=== PATIENT | female | born 1960 | race Caucasian/White ===

== ENCOUNTER 2016-06-05 06:40 | Inpatient (IN) | payer BC ==
[2016-06-03 16:08] LABS: Basophils # (auto) 0 uL; DEFINITIVE VIEW TRANSMISSION; Eosinophils # (auto) 0.1 uL; Hematocrit 39.3 % (36.0-46.0); Lymphocytes # (auto) 1.2 uL; Mean Corpuscular Volume 82.3 fL (80.0-100.0); Mean Platelet Volume 8.8 fL (7.4-10.4)
[2016-06-03 16:14] LABS: Urine Bilirubin Negative (Negative); Urine Blood Negative /uL (Negative); Urine Color Yellow (Yellow); Urine Ketone Negative (Negative); Urine Mucus FEW (None Seen); Urine Nitrite Negative (Negative); Urine RBC 1 /hpf (0 - 4); Urine Squamous Epithelial Cell FEW /hpf (<5); Urine Urobilinogen Normal (Negative); Urine pH 5.5 (5.0-8.0)
[2016-06-03 16:19] LABS: Basophils % (auto) 0.4 % (0.0-2.0); Eosinophils % (auto) 2.3 % (0.0-7.0); Hemoglobin 12.8 g/dL (12.2-16.2); Lymphocytes % (auto) 19.5 % (10.0-50.0); Mean Corpuscular Hemoglobin 26.8 pg (28.0-32.0); Mean Corpuscular Hgb Conc. 32.5 g/dL (32.0-36.0); Monocytes # (auto) 0.4 uL; Monocytes % (auto) 6.2 % (0.0-12.0); Neutrophils # (auto) 4.4 uL; Neutrophils % (auto) 71.6 % (37.0-80.0); Platelet Count (auto) 375 10^3/uL (140-450); Red Cell Distribution Width 13.9 % (11.6-16.0); White Blood Cell 6.2 10^3/uL (4.4-10.8)
[2016-06-03 16:23] LABS: INR 1.01 (0.9-1.15); Partial Thromboplastin Time 26.8 sec (22.64-33.71); Prothrombin Time 10.4 sec (9.37-12.3)
[2016-06-03 16:26] LABS: Albumin 3.7 g/dL (3.4-5.0); BUN/Creatinine Ratio 24.4; Bilirubin, Total 0.3 mg/dL (0.2-1.0); Calcium 9.2 mg/dL (8.5-10.1); Potassium 3.8 mmol/L (3.5-5.1); Total Protein 7.4 g/dL (6.4-8.2)
[2016-06-03 16:35] LABS: Urine Glucose 1+ mg/dL (Normal)
[~2016-06-05] VITALS: Ht 177.8 cm; Wt 130.6 kg
[~2016-06-05 06:40] MED LIST: HYDR12.56 PO; INSUINJ47; LEVEMIR SC; LEVO88TA36 PO; POT10T PO
[2016-06-05] MEDS ORDERED: BUPIVACAINE 0.25% INJ 50ML VIAL ONE (06:46)
[2016-06-05] MEDS ORDERED: LIDOCAINE 1% HCL (LOCAL ANESTH.) INJ 20ML MDV ONE (06:46)
[2016-06-05] MEDS ORDERED: ceFAZolin 1GM/50ML D5W 50 ML IV ONE (07:26)
[2016-06-05] MEDS ORDERED: SUCCINYLCHOLINE CHLORIDE 20 MG/ML 10ML VIAL IV ONE (07:30)
[2016-06-05] MEDS ORDERED: fentaNYL CITRATE 5 ML ONE (07:31)
[2016-06-05] MEDS ORDERED: ROCURONIUM 10MG/ML 10ML VIAL IV ONE (07:31)
[2016-06-05] MEDS ORDERED: MIDAZOLAM HCL 1MG/1ML-2 ML VIAL ONE (07:32)
[2016-06-05] MEDS ORDERED: PROPOFOL 10 MG/ML 20 ML IV ONE (07:32)
[2016-06-05] MEDS ORDERED: GLYCOPYRROLATE 0.2 MG/ML 1ML VIAL IV ONE (07:33)
[2016-06-05] MEDS ORDERED: NEOSTIGMINE 1 MG/ML INJ (10mg/10ML VIAL) IV ONE (07:33)
[2016-06-05] MEDS ORDERED: NEOMYCIN-BACITRACIN-POLYM 15GM TOP OINT TOP ONE (08:54)
[2016-06-05] MEDS ORDERED: fentaNYL CITRATE 100 MCG/2 ML VL ONE (09:14)
[2016-06-05] MEDS ORDERED: NITROGLYCERIN 0.4 MG SL TAB SL PRN (09:15)
[2016-06-05] MEDS ORDERED: HYDROcodone-ACET 5/325MG TAB PO PRN (09:15)
[2016-06-05] MEDS ORDERED: ONDANSETRON HCL 4 MG/2 ML VIAL IV ONE (09:30)
[2016-06-05] MEDS ORDERED: ePHEDrine SULFATE 50 MG/ML AMP IV PRN (09:30)
[2016-06-05] MEDS ORDERED: hydrALAZINE HCL 20 MG/ML VL IV PRN (09:30)
[2016-06-05] MEDS: HYDROmorphone HCL 2 MG/ML VL IV PRN ×5 (09:38→19:43)
[2016-06-05 10:34] VITALS: BP 144/68
[2016-06-05] MEDS: MEPERIDINE HCL (25 MG/ML) 1ML VIAL IV PRN ×2 (11:18→16:05)
[2016-06-05] MEDS: SOD CHL 0.45% 1,000 ML IV SCH ×2 (11:30→17:15)
[2016-06-05 13:00] VITALS: BP 135/68
[2016-06-05 13:13] VITALS: BP 144/68
[2016-06-05] MEDS: ceFAZolin 1GM/50ML D5W 50 ML IV SCH ×2 (13:47→22:00)
[2016-06-05] MEDS ORDERED: DEXTROSE (50%) 50ML SYRG IV PRN (15:00)
[2016-06-05] MEDS: InsuLIN REG 1unit/0.01ml Soln (100units/ml) SC SCH ×2 (15:37→22:00)
[2016-06-05] MEDS: ACCU-CHEK COMFORT CURVE STRIP VI SCH ×2 (15:40→22:00)
[2016-06-05 17:00] VITALS: BP 137/76
[2016-06-05] MEDS: INSULIN DETEMIR(LEVEMIR) 1unit/0.01ml Soln (100units/ml) SC SCH (18:07)
[2016-06-05] MEDS: ONDANSETRON HCL 4 MG/2 ML VIAL IV PRN (19:46)
[2016-06-05 21:52] VITALS: BP 120/72
[2016-06-05] MEDS: MORPHINE SULF INJ 2 MG/ML SYRINGE 1ML IV PRN (23:55)
[2016-06-06] MEDS: SOD CHL 0.45% 1,000 ML IV SCH ×2 (01:30→09:36)
[2016-06-06 05:02] VITALS: BP 139/65
[2016-06-06] MEDS: ceFAZolin 1GM/50ML D5W 50 ML IV SCH (06:13)
[2016-06-06] MEDS: MORPHINE SULF INJ 2 MG/ML SYRINGE 1ML IV PRN (06:17)
[2016-06-06] MEDS: InsuLIN REG 1unit/0.01ml Soln (100units/ml) SC SCH (07:00)
[2016-06-06] MEDS: ACCU-CHEK COMFORT CURVE STRIP VI SCH (07:00)
[2016-06-06] MEDS: INSULIN DETEMIR(LEVEMIR) 1unit/0.01ml Soln (100units/ml) SC SCH (08:16)
[2016-06-06] MEDS: MEPERIDINE HCL (25 MG/ML) 1ML VIAL IV PRN (10:13)
[2016-06-06 12:00] VITALS: BP 122/52
[2016-06-06] MEDS: ONDANSETRON HCL 4 MG/2 ML VIAL IV PRN (13:11)
[2016-06-06 14:27] VITALS: BP 122/52
== END 2016-06-06 15:30 | disposition home or self-care (01) | DRG 627 ==
LOC: SUR 06:40 → TELE-EAST 06:41 → EAST 20:45
PROVIDERS: ADMIT Otolaryngology; ATTEND Internal Medicine
PROC: 0GTG0ZZ Resection of Left Thyroid Gland Lobe, Open Approach (ICD-10-PCS; principal; 2016-06-05 07:33)
DX: D34 Benign neoplasm of thyroid gland (principal); E03.9 Hypothyroidism, unspecified; E66.01 Morbid (severe) obesity due to excess calories; E04.9 Nontoxic goiter, unspecified; E07.9 Disorder of thyroid, unspecified; E10.9 Type 1 diabetes mellitus without complications
CPT/HCPCS: 36415; 80053; 81001; 82962; 85025; 85610; 85730; 88307; J0330; J0690; J1815; J2001; J2250; J2405; J2704; J3490

== ENCOUNTER 2016-06-20 18:43 | Emergency (ER) | payer BC ==
[~2016-06-20] VITALS: Ht 177.8 cm; Wt 107.0 kg
[2016-06-20 18:46] VITALS: BP 142/68
[2016-06-20 19:23] LABS: Basophils # (auto) 0 uL; DEFINITIVE VIEW TRANSMISSION; Eosinophils # (auto) 0.1 uL; Mean Platelet Volume 8.5 fL (7.4-10.4); Monocytes # (auto) 0.5 uL; Red Cell Distribution Width 12.8 % (11.6-16.0); SUSPECT VIEW TRANSMISSION
[2016-06-20 19:30] LABS: Basophils % (auto) 0.2 % (0.0-2.0); Eosinophils % (auto) 0.9 % (0.0-7.0); Hemoglobin 12.9 g/dL (12.2-16.2); Lymphocytes # (auto) 0.8 uL; Lymphocytes % (auto) 7.9 % (10.0-50.0); Mean Corpuscular Hemoglobin 27.3 pg (28.0-32.0); Mean Corpuscular Hgb Conc. 33.2 g/dL (32.0-36.0); Mean Corpuscular Volume 82.2 fL (80.0-100.0); Monocytes % (auto) 4.6 % (0.0-12.0); Neutrophils # (auto) 8.9 uL; Neutrophils % (auto) 86.4 % (37.0-80.0); Platelet Count (auto) 325 10^3/uL (140-450); White Blood Cell 10.3 10^3/uL (4.4-10.8)
[2016-06-20 19:31] LABS: Albumin 3.8 g/dL (3.4-5.0); BUN/Creatinine Ratio 20.2; Bilirubin, Total 0.2 mg/dL (0.2-1.0); Calcium 9.2 mg/dL (8.5-10.1); Total Protein 7.8 g/dL (6.4-8.2)
== END 2016-06-20 21:16 | disposition left against medical advice (07) ==
LOC: ER 18:48
DX: E16.2 Hypoglycemia, unspecified (principal); Z53.21 Procedure and treatment not carried out due to patient leaving prior to being seen by health care provider
CPT/HCPCS: 36415; 80053; 85025

== ENCOUNTER → 2016-06-24 | Outpatient (CLI) | payer BC ==
[2016-06-24 17:35] LABS: Albumin 3.8 g/dL (3.4-5.0); BUN/Creatinine Ratio 26.1; Bilirubin, Total 0.2 mg/dL (0.2-1.0); Potassium 3.6 mmol/L (3.5-5.1); Total Protein 7.8 g/dL (6.4-8.2)
[2016-06-24 18:28] LABS: Basophils # (auto) 0.1 uL; Basophils % (auto) 0.8 % (0.0-2.0); DEFINITIVE VIEW TRANSMISSION; Eosinophils # (auto) 0.2 uL; Eosinophils % (auto) 2.3 % (0.0-7.0); Hemoglobin 12.6 g/dL (12.2-16.2); Lymphocytes # (auto) 1.4 uL; Lymphocytes % (auto) 20.9 % (10.0-50.0); Mean Corpuscular Hemoglobin 26.1 pg (28.0-32.0); Mean Corpuscular Hgb Conc. 31.5 g/dL (32.0-36.0); Mean Corpuscular Volume 82.7 fL (80.0-100.0); Mean Platelet Volume 8.8 fL (7.4-10.4); Monocytes # (auto) 0.4 uL; Monocytes % (auto) 6.5 % (0.0-12.0); Neutrophils # (auto) 4.6 uL; Neutrophils % (auto) 69.5 % (37.0-80.0); Platelet Count (auto) 353 10^3/uL (140-450); Red Cell Distribution Width 13.7 % (11.6-16.0); White Blood Cell 6.7 10^3/uL (4.4-10.8)
[2016-06-24 19:57] LABS: Hypochromia Slight; Platelet Estimate Adequate
== END | disposition home or self-care (01) ==
LOC: LAB 16:25
PROVIDERS: ATTEND Internal Medicine
DX: E03.9 Hypothyroidism, unspecified (principal); E10.9 Type 1 diabetes mellitus without complications
CPT/HCPCS: 36415; 80053; 82607; 83001; 83036; 84439; 84443; 85025

== ENCOUNTER → 2017-02-25 | Outpatient (CLI) | payer BC ==
[2017-02-25 10:14] LABS: Basophils # (auto) 0.1 uL; Eosinophils # (auto) 0.3 uL; Lymphocytes # (auto) 1.7 uL; Monocytes # (auto) 0.8 uL; Red Cell Distribution Width 15.9 % (11.8-14.3)
[2017-02-25 10:22] LABS: Albumin 3.6 g/dL (3.4-5.0); Bilirubin, Total 0.4 mg/dL (0.2-1.0); Calcium 8.8 mg/dL (8.5-10.1); Potassium 3.2 mmol/L (3.5-5.1); Total Protein 7.5 g/dL (6.4-8.2)
[2017-02-25 10:23] LABS: Basophils % (auto) 0.6 % (0.0-2.0); Eosinophils % (auto) 3.3 % (0.0-7.0); Hematocrit 40.5 % (36.0-46.0); Hemoglobin 13.4 g/dL (12.2-16.2); Lymphocytes % (auto) 19.1 % (10.0-50.0); Mean Corpuscular Hemoglobin 26.7 pg (28.0-32.0); Mean Corpuscular Hgb Conc. 33.1 g/dL (32.0-36.0); Mean Corpuscular Volume 80.5 fL (80.0-100.0); Mean Platelet Volume 8.1 fL (6.9-10.8); Monocytes % (auto) 8.6 % (0.0-12.0); Neutrophils % (auto) 68.4 % (37.0-80.0); Platelet Count (auto) 365 10^3/uL (140-450); White Blood Cell 8.8 10^3/uL (4.4-10.8)
[2017-02-25 10:49] LABS: Urine Bilirubin Negative (Negative); Urine Blood Negative /uL (Negative); Urine Color Yellow (Yellow); Urine Glucose TRACE mg/dL (Normal); Urine Ketone Negative (Negative); Urine Mucus FEW (None Seen); Urine Nitrite Negative (Negative); Urine RBC 1 /hpf (0 - 4); Urine Squamous Epithelial Cell FEW /hpf (<5); Urine Urobilinogen Normal (Negative); Urine pH 5.5 (5.0-8.0)
== END | disposition home or self-care (01) ==
LOC: LAB 09:24
PROVIDERS: ATTEND Internal Medicine
DX: E11.9 Type 2 diabetes mellitus without complications (principal)
CPT/HCPCS: 36415; 80053; 80061; 81001; 82043; 83036; 84439; 84443; 85025; 85652

== ENCOUNTER → 2017-03-25 | Outpatient (CLI) | payer BC | END | disposition home or self-care (01) | LOC: LAB 09:25 | PROVIDERS: ATTEND Internal Medicine | DX: E11.9 Type 2 diabetes mellitus without complications (principal); E03.9 Hypothyroidism, unspecified | CPT/HCPCS: 36415; 82085; 84132; 84439; 84443 ==

== ENCOUNTER → 2019-06-03 | Outpatient (CLI) | payer BC ==
[2019-06-03 08:03] LABS: Eosinophils # (auto) 0.1 uL; Hemoglobin 11.8 g/dL (12.2-16.2); Lymphocytes # (auto) 0.9 uL; Lymphocytes % (auto) 20.8 % (10.0-50.0); Monocytes # (auto) 0.4 uL; Monocytes % (auto) 7.9 % (0.0-12.0)
[2019-06-03 08:05] LABS: Basophils # (auto) 0.1 uL; Basophils % (auto) 1.2 % (0.0-2.0); Eosinophils % (auto) 2.4 % (0.0-7.0); Hematocrit 35.7 % (36.0-46.0); Mean Corpuscular Hemoglobin 25.9 pg (28.0-32.0); Mean Corpuscular Volume 78.5 fL (80.0-100.0); Neutrophils % (auto) 67.7 % (37.0-80.0); Nucleated Red Blood Cells % 0.1 %; Platelet Count (auto) 309 10^3/uL (140-450); Red Blood Cells 4.55 10^6/uL (4.0-5.20); Red Cell Distribution Width 14.8 % (11.8-14.3); White Blood Cell 4.4 10^3/uL (4.4-10.8)
[2019-06-03 09:13] LABS: Albumin 3.3 g/dL (3.4-5.0); BUN/Creatinine Ratio 16.5; Calcium 8.6 mg/dL (8.5-10.1); Potassium 3.8 mmol/L (3.5-5.1)
[2019-06-03 09:16] LABS: Bilirubin, Total 0.5 mg/dL (0.2-1.0); Total Protein 7.1 g/dL (6.4-8.2)
[2019-06-03 09:21] LABS: Free T4 (Free Thyroxine) 1.39 ng/dL (0.89-1.76)
[2019-06-03 09:22] LABS: Free T3 2.8 pg/mL (2.3-4.2)
== END | disposition home or self-care (01) ==
LOC: LAB 07:05
PROVIDERS: ATTEND Internal Medicine
DX: Z00.00 Encounter for general adult medical examination without abnormal findings (principal); E10.618 Type 1 diabetes mellitus with other diabetic arthropathy; E78.5 Hyperlipidemia, unspecified; Z12.11 Encounter for screening for malignant neoplasm of colon
CPT/HCPCS: 36415; 80053; 80061; 82043; 82306; 83036; 84439; 84443; 84481; 85025

== ENCOUNTER → 2019-06-14 | Outpatient (CLI) | payer BC | END | disposition home or self-care (01) | LOC: LAB 07:11 | PROVIDERS: ATTEND Internal Medicine | DX: Z12.11 Encounter for screening for malignant neoplasm of colon (principal); E10.69 Type 1 diabetes mellitus with other specified complication; E78.5 Hyperlipidemia, unspecified | CPT/HCPCS: 82274 ==

== ENCOUNTER 2019-06-28 09:43 | Inpatient (IN) | payer BC ==
[~2019-06-28] VITALS: Ht 175.3 cm; Wt 127.6 kg
[2019-06-28 10:23] LABS: Basophils # (auto) 0.1 uL; Basophils % (auto) 1.1 % (0.0-2.0); Eosinophils # (auto) 0.1 uL; Eosinophils % (auto) 1.6 % (0.0-7.0); Hematocrit 37.9 % (36.0-46.0); Hemoglobin 12.4 g/dL (12.2-16.2); Lymphocytes % (auto) 17.3 % (10.0-50.0); Mean Corpuscular Hemoglobin 25.4 pg (28.0-32.0); Mean Corpuscular Hgb Conc. 32.7 g/dL (32.0-36.0); Mean Corpuscular Volume 77.8 fL (80.0-100.0); Monocytes # (auto) 0.3 uL; Monocytes % (auto) 5.6 % (0.0-12.0); Neutrophils # (auto) 4.5 uL; Neutrophils % (auto) 74.4 % (37.0-80.0); Platelet Count (auto) 337 10^3/uL (140-450); Red Blood Cells 4.88 10^6/uL (4.0-5.20); Red Cell Distribution Width 15.6 % (11.8-14.3); White Blood Cell 6.1 10^3/uL (4.4-10.8)
[2019-06-28 10:40] LABS: Albumin 3.6 g/dL (3.4-5.0); Potassium 3.9 mmol/L (3.5-5.1)
[2019-06-28 10:43] LABS: BUN/Creatinine Ratio 23.5; Bilirubin, Total 0.4 mg/dL (0.2-1.0); Total Protein 7.6 g/dL (6.4-8.2)
[2019-06-28] MEDS ORDERED: ALBUTEROL SULF 2.5 MG/0.5ML(0.5%) NEB SOLN HHN ONE (11:15)
[2019-06-28] MEDS ORDERED: SODIUM CHLORIDE 0.9% 1,000 ML IV ONE (11:15)
[2019-06-28] MEDS ORDERED: methylPREDNISolone SOD SUCC 125 MG/2 ML VL IV ONE (11:15)
[2019-06-28] MEDS ORDERED: IPRATROPIUM BROM 0.5 MG/2.5ML INH SOL HHN ONE (11:15)
[2019-06-28] MEDS ORDERED: ACETAMINOPHEN 325 MG TAB PO ONE (12:30)
[2019-06-28] MEDS ORDERED: ENALAPRILAT 1.25 MG/ML-1ML VIAL IV PRN (14:45)
[2019-06-28] MEDS ORDERED: ACETAMINOPHEN 500 MG TAB PO PRN (14:45)
[2019-06-28] MEDS ORDERED: DEXTROSE (50%) 50ML SYRG IV PRN (14:45)
[2019-06-28] MEDS ORDERED: MORPHINE SULF INJ 2 MG/ML SYRINGE 1ML IV PRN (14:45)
[2019-06-28] MEDS ORDERED: NITROGLYCERIN 0.4 MG SL TAB SL PRN (14:45)
[2019-06-28 15:27] VITALS: BP 135/69
[2019-06-28] MEDS: SODIUM CHLORIDE 0.9% 1,000 ML IV SCH (15:32)
--- NOTE | 2019-06-28 15:52 | NUR ---
Telemetry admit from ER OSMEL MCLAUGHLIN admitted to Telemetry unit after SBAR received. Patient oriented to Lea Espinal, primary RN, unit, room, bed, and unit policies regarding patient care and visiting hours. Patient now on continuous telemetry monitoring, tele box #[id number] and telemetry reading on arrival to unit is SR. Patient placed on bedside oxygen, weighed by bedscale and encouraged to call if they need something. All questions and concerns addressed, patient verbalized understanding.
[2019-06-28] MEDS: cefTRIAXone 1GM/50ML D5W 50 ML IV SCH (16:00)
[2019-06-28] MEDS: InsuLIN REG 1unit/0.01ml Soln (100units/ml) SC SCH ×2 (16:00→20:00)
[2019-06-28] MEDS: ACCU-CHEK COMFORT CURVE STRIP VI SCH ×2 (16:00→20:00)
[2019-06-28] MEDS: AZITHROMYCIN 500MG/ 250ML 250 ML IV SCH (16:00)
[2019-06-28 17:00] VITALS: BP 143/71
[2019-06-28 17:42] VITALS: BP 143/71
[2019-06-28] MEDS: ALBUTEROL SULF 2.5 MG/0.5ML(0.5%) NEB SOLN NEB SCH (18:55)
[2019-06-28] MEDS: IPRATROPIUM BROM 0.5 MG/2.5ML INH SOL NEB SCH (18:55)
--- NOTE | 2019-06-28 19:27 | NUR ---
care endorsed to NOC RN.
--- NOTE | 2019-06-28 19:30 | NUR ---
Opening Shift Note Assumed care of patient, who is A&O x4. Family is at the bedside at this time. Currently on 2L NC with no s/s of distress. Reports SOB with exertion. Patient is ambulatory without the use of assistive devices. PIV in right forearm is intact and patent. Patient reports tingling/burning sensation at insertion site. Azithromycin currently infusing. Rate decreased and IVF ran concurrently. POC discussed with patient and family who verbalize understanding. Bed is in low locked position with side rails up x2. Call light is within reach and patient encouraged to call for assistance when needed. Will continue to monitor for changes PRN.
--- NOTE | 2019-06-28 19:45 | NUR ---
Patient provided specimen cup and instructed on collection of sputum sample. Called lab and requested swab for Rapid Influenza A&B.
--- NOTE | 2019-06-28 20:12 | NUR ---
HOME MEDICATIONS Patient requesting to use personal Levemire and novolog insulin pens at bedside, rather than hospital insulin. Reports that at home she administers 20 units Novolog for BG greater than 250 and 16 units Levemire at breakfast and dinner. Hospitalist paged to notify of patient's request.
[2019-06-28 20:15] VITALS: BP 135/69
--- NOTE | 2019-06-28 20:38 | NUR ---
IV removal IV to left forearm infiltrated. Surrounding tissues pink amd mildly edemetous. Infusion stopped and IV DC'd with clean sterile technique, catheter fully intact. Pressure dressing applied to site. Patient tolerated well. Addendum: 06/28/19 at 2051 by JAYESH MARTINI RN RN Correction: IV to RIGHT forearm DC'd
--- NOTE | 2019-06-28 20:42 | NUR ---
IV insertion IV access obtained, via clean sterile technique by inserting 22 gauge catheter at left after 1 attempt. IV secured properly. No trauma to site. Patient tolerated well.
[2019-06-28] MEDS ORDERED: SIMV10TA84 PO (20:54)
[2019-06-28] MEDS: INSULIN LANTUS (GLARGINE) 1 /0.01ml (100units/ml) SC SCH (21:36)
[2019-06-28 22:00] VITALS: BP 135/69
--- NOTE | 2019-06-28 22:18 | NUR ---
Received call from Hospitalist Feliciano Davis NP. No new orders at this time. Rounding hospitalist to review Medication reconciliation with patient tomorrow 06/29/19.
[2019-06-29] VITALS (8 sets, daily range): BP systolic 114–140; BP diastolic 46–79
[2019-06-29] MEDS: ACCU-CHEK COMFORT CURVE STRIP VI SCH ×6 (00:29→20:10)
[2019-06-29] MEDS: InsuLIN REG 1unit/0.01ml Soln (100units/ml) SC SCH ×6 (00:32→20:10)
[2019-06-29] MEDS: SODIUM CHLORIDE 0.9% 1,000 ML IV SCH ×3 (00:33→17:35)
[2019-06-29 05:43] LABS: Basophils # (auto) 0 uL; Basophils % (auto) 0.2 % (0.0-2.0); Eosinophils # (auto) 0 uL; Hematocrit 33.3 % (36.0-46.0); Lymphocytes # (auto) 0.8 uL; Lymphocytes % (auto) 10.4 % (10.0-50.0); Mean Corpuscular Hemoglobin 25.4 pg (28.0-32.0); Mean Corpuscular Hgb Conc. 33.2 g/dL (32.0-36.0); Mean Corpuscular Volume 76.6 fL (80.0-100.0); Monocytes # (auto) 0.7 uL; Monocytes % (auto) 8.4 % (0.0-12.0); Neutrophils # (auto) 6.4 uL; Platelet Count (auto) 319 10^3/uL (140-450); Red Blood Cells 4.35 10^6/uL (4.0-5.20); Red Cell Distribution Width 15.6 % (11.8-14.3); White Blood Cell 7.9 10^3/uL (4.4-10.8)
[2019-06-29 06:02] LABS: Calcium 8.8 mg/dL (8.5-10.1); Potassium 3.8 mmol/L (3.5-5.1)
[2019-06-29] MEDS: IPRATROPIUM BROM 0.5 MG/2.5ML INH SOL NEB SCH ×3 (06:25→19:27)
[2019-06-29] MEDS: ALBUTEROL SULF 2.5 MG/0.5ML(0.5%) NEB SOLN NEB SCH ×3 (06:25→19:27)
[2019-06-29] MEDS: INSULIN LANTUS (GLARGINE) 1 /0.01ml (100units/ml) SC SCH ×2 (06:45→21:43)
--- NOTE | 2019-06-29 06:59 | NUR ---
CLOSING SHIFT NOTE Patient resting comfortably. No distress noted. Call light is within reach. Care endorsed to AM nurse.
[2019-06-29] MEDS: AZITHROMYCIN 500MG/ 250ML 250 ML IV SCH ×2 (08:36→09:20)
[2019-06-29] MEDS: cefTRIAXone 1GM/50ML D5W 50 ML IV SCH (08:37)
[2019-06-29] MEDS: FAMOTIDINE 20 MG TAB PO SCH (09:20)
[2019-06-29] MEDS ORDERED: InsuLIN REG 1unit/0.01ml Soln (100units/ml) SC ONE (14:15)
[2019-06-29] MEDS ORDERED: methylPREDNISolone SOD SUCC 40 MG/ML VL IV ONE (15:15)
--- NOTE | 2019-06-29 19:20 | NUR ---
Opening Shift Note Assumed care of patient, who is A&O x4. Family is at the bedside at this time. Currently on 2L NC with no s/s of distress. Reports SOB with exertion. Patient is ambulatory without the use of assistive devices. PIV in left forearm is intact and patent. POC discussed with patient who verbalizes understanding. Bed is in low locked position with side rails up x2. Call light is within reach and patient encouraged to call for assistance when needed. Will continue to monitor for changes PRN.
[2019-06-29] MEDS: methylPREDNISolone SOD SUCC 40 MG/ML VL IV SCH (21:37)
[2019-06-30] VITALS (7 sets, daily range): BP systolic 108–144; BP diastolic 44–63
[2019-06-30] MEDS: ACCU-CHEK COMFORT CURVE STRIP VI SCH ×6 (00:08→20:00)
[2019-06-30] MEDS: InsuLIN REG 1unit/0.01ml Soln (100units/ml) SC SCH ×5 (00:09→20:00)
--- NOTE | 2019-06-30 01:10 | NUR ---
Rapid Influenza Sample collected for rapid influenza A&B. Sent to lab delroy garnica.
[2019-06-30] MEDS: SODIUM CHLORIDE 0.9% 1,000 ML IV SCH ×2 (05:43→15:07)
[2019-06-30 05:46] LABS: Calcium 8.4 mg/dL (8.5-10.1); Magnesium 2.2 mg/dL (1.6-2.6); Potassium 4.4 mmol/L (3.5-5.1)
[2019-06-30 05:50] LABS: BUN/Creatinine Ratio 22.2
[2019-06-30] MEDS: INSULIN LANTUS (GLARGINE) 1 /0.01ml (100units/ml) SC SCH ×2 (07:03→21:59)
[2019-06-30] MEDS: LEVOTHYROXINE SODIUM 88 MCG TAB PO SCH (07:03)
[2019-06-30] MEDS: ALBUTEROL SULF 2.5 MG/0.5ML(0.5%) NEB SOLN NEB SCH ×3 (08:17→18:43)
[2019-06-30] MEDS: IPRATROPIUM BROM 0.5 MG/2.5ML INH SOL NEB SCH ×3 (08:17→18:44)
[2019-06-30] MEDS: cefTRIAXone 1GM/50ML D5W 50 ML IV SCH (08:45)
[2019-06-30] MEDS: methylPREDNISolone SOD SUCC 40 MG/ML VL IV SCH ×2 (09:23→21:54)
[2019-06-30] MEDS: FAMOTIDINE 20 MG TAB PO SCH (09:24)
[2019-06-30] MEDS: AZITHROMYCIN 500MG/ 250ML 250 ML IV SCH (09:24)
[2019-06-30] MEDS: ONDANSETRON HCL 4 MG/2 ML VIAL IV PRN (10:18)
[2019-06-30] MEDS: guaiFENesin-DM 100/10mg/5ml SYR PO PRN (14:00)
[2019-06-30] MEDS: ACETYLCYSTEINE 10 %(100MG/ML) SOL 4ML NEB SCH (18:44)
[2019-06-30] MEDS ORDERED: DEXTROSE (50%) 50ML SYRG IV PRN (19:00)
--- NOTE | 2019-06-30 19:20 | NUR ---
Opening Shift Note Assumed care of patient, awake and alert and oriented x4. No S/S of distress, or pain reported at this time, currently sitting up in chair, on room air, nasal canula at bedside to use PRN, no current c/o sob, IV patent to right wrist, no swelling, redness or pain reported, Instructed on POC and to call for assist PRN, call light within reach, will continue to monitor for changes Q1hr and PRN.
--- NOTE | 2019-06-30 21:30 | NUR ---
ACTIVITY PT NOTED AMBULATING, ON ROOM AIR, NO DISTRESS NOTED, NO C/O SOB AT THIS TIME, CONT CARE
[2019-06-30] MEDS: MORPHINE SULF INJ 2 MG/ML SYRINGE 1ML IV PRN (21:55)
--- NOTE | 2019-07-01 03:16 | NUR ---
PT CARE ENDORSED TO KACIE HICKS
[2019-07-01] MEDS: InsuLIN REG 1unit/0.01ml Soln (100units/ml) SC SCH ×7 (04:00→23:51)
[2019-07-01] MEDS: ACCU-CHEK COMFORT CURVE STRIP VI SCH ×7 (04:15→23:50)
[2019-07-01 05:00] VITALS: BP 105/53
[2019-07-01] MEDS: LEVOTHYROXINE SODIUM 88 MCG TAB PO SCH (07:16)
[2019-07-01] MEDS: INSULIN LANTUS (GLARGINE) 1 /0.01ml (100units/ml) SC SCH ×2 (07:17→22:44)
[2019-07-01 08:00] VITALS: BP 110/78
[2019-07-01] MEDS: IPRATROPIUM BROM 0.5 MG/2.5ML INH SOL NEB SCH ×3 (08:43→19:41)
[2019-07-01] MEDS: ACETYLCYSTEINE 10 %(100MG/ML) SOL 4ML NEB SCH ×3 (08:43→19:42)
[2019-07-01] MEDS: ALBUTEROL SULF 2.5 MG/0.5ML(0.5%) NEB SOLN NEB SCH ×3 (08:43→19:41)
[2019-07-01 09:00] VITALS: BP 110/48
[2019-07-01] MEDS: methylPREDNISolone SOD SUCC 40 MG/ML VL IV SCH ×2 (09:33→22:42)
[2019-07-01] MEDS: cefTRIAXone 1GM/50ML D5W 50 ML IV SCH (09:33)
[2019-07-01] MEDS: FAMOTIDINE 20 MG TAB PO SCH (09:33)
[2019-07-01] MEDS: SODIUM CHLORIDE 0.9% 1,000 ML IV SCH (09:34)
[2019-07-01] MEDS: AZITHROMYCIN 500MG/ 250ML 250 ML IV SCH (10:27)
[2019-07-01] MEDS: guaiFENesin-DM 100/10mg/5ml SYR PO PRN ×2 (10:27→20:08)
[2019-07-01 12:30] VITALS: BP 149/67
--- NOTE | 2019-07-01 14:03 | NUR ---
Nutrition Assessment Notes Please refer to link for full assessment notes Est energy needs: 1727-9782 kcals (12-15 kcals/kgBW) Est protein needs: 65-82 gms/day (0.8-1.0 gm/kgAdjBW) Will continue to monitor and reassess prn Addendum: 07/01/19 at [address] Amended: Links added.
--- NOTE | 2019-07-01 15:52 | NUR ---
assessment Patient is a 58 year old female who is alert and oriented. Patients cognitive abilities are intact. Prior to admission patient lived home with family and functioned independently. Patient informed me she is able to care for her own ADLs. Per patient she will return home to her prior living arrangements post discharge and family will transport her home. Patients PCP is Dr Jessica Adame. Patient has no safety issues regarding returning home on discharge. Patient has been admitted for Sepsis. Patient may need home IV ABX. Per patient she is teachable if she needs ABX. I informed patient she has a right to speak to a older adult social work specialist regarding all care. I informed patient she has a right to participate in any and all discharge planning. Patient does not have a POA and advanced directive. I have offered patient information on POA and advanced directives. I informed the patient the advantages and benefits of having an Advanced Directive. Patient verbalized understanding and agreed to discharge plan. Addendum: 07/01/19 at 1554 by Christine MADERA Amended: Links added.
[2019-07-01 17:00] VITALS: BP 133/57
--- NOTE | 2019-07-01 19:30 | NUR ---
Opening Shift Note Assumed care of patient, awake and alert and oriented x4. No S/S of distress on 2L N/C. Reports pain 7/10, currently sitting up in chair. Instructed on POC and to call for assist PRN, call light within reach, will continue to monitor for changes Q1hr and PRN.
--- NOTE | 2019-07-01 19:45 | NUR ---
Rt at bedside
[2019-07-01] MEDS: MORPHINE SULF INJ 2 MG/ML SYRINGE 1ML IV PRN (20:08)
[2019-07-01] MEDS: ONDANSETRON HCL 4 MG/2 ML VIAL IV PRN (20:08)
[2019-07-01 20:54] VITALS: BP 133/57
[2019-07-01] MEDS: HYDROcodone-ACET 5/325MG TAB PO PRN (22:43)
[2019-07-02] VITALS (8 sets, daily range): BP systolic 108–139; BP diastolic 49–77
--- NOTE | 2019-07-02 03:25 | NUR ---
PT CARE RESUMED PT CURRENTLY SLEEPING, ON HER RIGHT SIDE, CURRENTLY ON 2L VIA NC, BREATHING EVEN AND UNLABORED, HOB>30, PATIENT EASILY AWAKENED VIA VERBAL STIMULI, NO C/O SOB, CP OR ANY OTHER DISCOMFORT, IV PATENT AND BENIGN, PT UPDATED ON POC, CALL LIGHT WITHIN REACH, CONT CARE
[2019-07-02] MEDS: ACCU-CHEK COMFORT CURVE STRIP VI SCH ×5 (04:00→20:00)
[2019-07-02] MEDS: InsuLIN REG 1unit/0.01ml Soln (100units/ml) SC SCH ×5 (04:00→20:00)
[2019-07-02] MEDS: LEVOTHYROXINE SODIUM 88 MCG TAB PO SCH (06:42)
[2019-07-02] MEDS: INSULIN LANTUS (GLARGINE) 1 /0.01ml (100units/ml) SC SCH ×2 (06:43→21:10)
[2019-07-02] MEDS: ALBUTEROL SULF 2.5 MG/0.5ML(0.5%) NEB SOLN NEB SCH ×3 (06:59→18:55)
[2019-07-02] MEDS: IPRATROPIUM BROM 0.5 MG/2.5ML INH SOL NEB SCH ×3 (07:00→18:55)
[2019-07-02] MEDS: ACETYLCYSTEINE 10 %(100MG/ML) SOL 4ML NEB SCH ×3 (07:00→22:00)
[2019-07-02 08:16] LABS: Calcium 8.3 mg/dL (8.5-10.1); Potassium 4.6 mmol/L (3.5-5.1)
[2019-07-02 08:19] LABS: BUN/Creatinine Ratio 27.1
[2019-07-02] MEDS: AZITHROMYCIN 500MG/ 250ML 250 ML IV SCH (09:47)
[2019-07-02] MEDS: methylPREDNISolone SOD SUCC 40 MG/ML VL IV SCH ×2 (09:47→21:02)
[2019-07-02] MEDS: cefTRIAXone 1GM/50ML D5W 50 ML IV SCH (09:47)
[2019-07-02] MEDS: FAMOTIDINE 20 MG TAB PO SCH (09:48)
[2019-07-02] MEDS: HYDROcodone-ACET 5/325MG TAB PO PRN (13:57)
--- NOTE | 2019-07-02 14:00 | NUR ---
IV removal Patient is complaining of her IV site burning. Patient is crying and asking for her IV to be removed. Assessed Iv site, no redness/swelling noted. IV DC'd with clean sterile technique, catheter fully intact. Pressure dressing applied to site. Patient tolerated well. . Addendum: 07/02/19 at 1409 by Lea Espinal RN Patient c/o pain , rates it 12/01. Placed Cold pack on right FA. Will medicate per MD orders.
--- NOTE | 2019-07-02 14:40 | NUR ---
Paged for Hospitalist.
[2019-07-02] MEDS ORDERED: AZITHROMYCIN 250 MG TAB PO ONE (15:45)
[2019-07-02] MEDS ORDERED: predniSONE 20 MG TAB PO ONE (15:45)
[2019-07-02] MEDS: guaiFENesin-DM 100/10mg/5ml SYR PO PRN ×2 (16:45→21:04)
--- NOTE | 2019-07-02 19:20 | NUR ---
closing Note No s/s of distress/sob noted/ stated. No c/o pain. Care endorsed to NOC RN.
[2019-07-02] MEDS: ALBUTEROL SULF 2.5 MG/0.5ML(0.5%) NEB SOLN NEB PRN (22:08)
[2019-07-03] MEDS: ACCU-CHEK COMFORT CURVE STRIP VI SCH ×6 (00:09→20:10)
[2019-07-03] MEDS: InsuLIN REG 1unit/0.01ml Soln (100units/ml) SC SCH ×6 (00:11→20:10)
[2019-07-03] MEDS: guaiFENesin-DM 100/10mg/5ml SYR PO PRN (03:59)
[2019-07-03] MEDS: HYDROcodone-ACET 5/325MG TAB PO PRN (03:59)
[2019-07-03 05:18] VITALS: BP 118/70
[2019-07-03] MEDS: ALBUTEROL SULF 2.5 MG/0.5ML(0.5%) NEB SOLN NEB SCH ×4 (06:16→22:32)
[2019-07-03] MEDS: IPRATROPIUM BROM 0.5 MG/2.5ML INH SOL NEB SCH ×4 (06:16→22:32)
[2019-07-03] MEDS: ACETYLCYSTEINE 10 %(100MG/ML) SOL 4ML NEB SCH ×3 (06:17→18:14)
[2019-07-03] MEDS: INSULIN LANTUS (GLARGINE) 1 /0.01ml (100units/ml) SC SCH ×2 (06:22→22:00)
[2019-07-03] MEDS: LEVOTHYROXINE SODIUM 88 MCG TAB PO SCH (06:22)
[2019-07-03 08:30] VITALS: BP 116/56
[2019-07-03 08:40] VITALS: BP 116/56
[2019-07-03] MEDS: cefTRIAXone 1GM/50ML D5W 50 ML IV SCH (09:00)
[2019-07-03] MEDS: AZITHROMYCIN 500MG/ 250ML 250 ML IV SCH (10:00)
[2019-07-03] MEDS: methylPREDNISolone SOD SUCC 40 MG/ML VL IV SCH ×2 (10:00→22:36)
[2019-07-03] MEDS ORDERED: LEVO500T21 PO (12:25)
[2019-07-03] MEDS ORDERED: PANT40TA2 PO (12:25)
[2019-07-03] MEDS ORDERED: FLUC200T35 PO (12:27)
[2019-07-03] MEDS ORDERED: FLUCONAZOLE 100 MG TAB PO ONE (12:30)
[2019-07-03 12:43] VITALS: BP 139/64
[2019-07-03 14:11] VITALS: BP 141/82
[2019-07-03] MEDS: ALBUTEROL SULF 2.5 MG/0.5ML(0.5%) NEB SOLN NEB PRN (16:03)
[2019-07-03] MEDS: IPRATROPIUM BROM 0.5 MG/2.5ML INH SOL NEB PRN (16:04)
[2019-07-03] MEDS: FAMOTIDINE 20 MG TAB PO SCH (16:17)
--- NOTE | 2019-07-03 17:30 | NUR ---
PATIENT IS C/O FEELING CONSTIPATED AND HAVING NAUSEA. PATIENT IS CRYING AND STATES "I DONT THINK I SHOULD LEAVE " PAGED FOR MD.
[2019-07-03 17:38] VITALS: BP 156/70
[2019-07-03] MEDS: ONDANSETRON HCL 4 MG/2 ML VIAL IV PRN ×2 (17:41→22:37)
--- NOTE | 2019-07-03 17:43 | NUR ---
IV insertion IV access obtained by Student nurse lens examiner Kindra , via clean sterile technique by inserting a 22gauge catheter at the right FA after the first attempt IV secured properly. No trauma to site. Patient tolerated well.
--- NOTE | 2019-07-03 17:50 | NUR ---
PATIENT REPORTS HAVING A DIARRHEA AND VOMITING EPISODE. MD REQUESTS FOR DISCHARGE TO BE PLACED ON HOLD AND TO HOLD ALL PAIN MEDICATIONS. WILL MEDICATE PER MD ORDERS. WILL CONTINUE TO MONITOR.
--- NOTE | 2019-07-03 19:28 | NUR ---
CLOSING NOTE REPORT GIVEN TO BJORN HESTER.
--- NOTE | 2019-07-03 19:38 | NUR ---
Opening Shift Note Assumed care of patient, awake and alert. No S/S of distress/SOB or pain. Instructed on POC and to call for assist PRN, will continue to monitor for changes Q1hr and PRN. Call light and bedside table within reach. Bed is in lowest position, bed rails 2x, bed wheels locked.
[2019-07-04 00:02] VITALS: BP 130/60
--- NOTE | 2019-07-04 00:09 | NUR ---
Paging hospitalist because patient's blood glucose is currently 54 mg/dl. Previous accucheck at 2200 was 63 mg/dl. Patient was given Jell-o with sugar to increase blood glucose. Patient given orange juice to increase blood glucose but she will likely be unable to drink much of the juice. Calling to request D5 infusion to maintain blood glucose.
--- NOTE | 2019-07-04 00:13 | NUR ---
Spoke to MD Simmons who ordered D5 with 0.45 sodium chloride at 60 mls/hr starting now.
[2019-07-04] MEDS ORDERED: D5W/SOD CHL 0.45% 1,000 ML IV SCH (00:15)
[2019-07-04] MEDS: ONDANSETRON HCL 4 MG/2 ML VIAL IV PRN ×2 (02:39→10:40)
[2019-07-04] MEDS: InsuLIN REG 1unit/0.01ml Soln (100units/ml) SC SCH ×5 (03:56→16:00)
[2019-07-04] MEDS: ACCU-CHEK COMFORT CURVE STRIP VI SCH ×5 (03:56→16:00)
--- NOTE | 2019-07-04 03:57 | NUR ---
Patient blood glucose was 154 m/dl. Patient refused insulin at this time. Patient states this is her normal range of blood glucose level. Provided education on risks. Will continue to monitor blood glucose level Q4hr.
[2019-07-04 06:05] VITALS: BP 111/58
[2019-07-04] MEDS: LEVOTHYROXINE SODIUM 88 MCG TAB PO SCH (06:08)
[2019-07-04] MEDS: ACETYLCYSTEINE 10 %(100MG/ML) SOL 4ML NEB SCH ×2 (06:25→14:35)
[2019-07-04] MEDS: INSULIN LANTUS (GLARGINE) 1 /0.01ml (100units/ml) SC SCH (06:41)
[2019-07-04 08:00] VITALS: BP 138/77
[2019-07-04 09:02] VITALS: BP 138/77
[2019-07-04] MEDS: methylPREDNISolone SOD SUCC 40 MG/ML VL IV SCH (09:58)
[2019-07-04] MEDS: cefTRIAXone 1GM/50ML D5W 50 ML IV SCH (09:58)
[2019-07-04] MEDS: FAMOTIDINE 20 MG TAB PO SCH (09:59)
[2019-07-04] MEDS ORDERED: AZITHROMYCIN 250 MG TAB PO SCH (10:00)
[2019-07-04] MEDS: ALBUTEROL SULF 2.5 MG/0.5ML(0.5%) NEB SOLN NEB SCH (11:21)
[2019-07-04] MEDS: IPRATROPIUM BROM 0.5 MG/2.5ML INH SOL NEB SCH (11:21)
--- NOTE | 2019-07-04 12:10 | NUR ---
Dr. Salmon at bedside.
--- NOTE | 2019-07-04 12:30 | NUR ---
Patient taken down for CT scan. Addendum: 07/04/19 at 1538 by Lea Espinal RN CT ABDOMEN/PELVIS REPORT PRINTED AND GIVEN TO PATIENT PER DR. OLIVAS. PATIENT IS REQUESTED TO FOLLOW UP WITH PRIMARY. BUILDING SUPERVISOR AWARE.
[2019-07-04 13:00] VITALS: BP 131/77
[2019-07-04] MEDS: ALBUTEROL SULF 2.5 MG/0.5ML(0.5%) NEB SOLN NEB PRN (14:35)
[2019-07-04] MEDS: IPRATROPIUM BROM 0.5 MG/2.5ML INH SOL NEB PRN (14:35)
[2019-07-04 17:00] VITALS: BP 132/65
[2019-07-04] MEDS ORDERED: INSULIN LANTUS (GLARGINE) 1 /0.01ml (100units/ml) SC SCH (22:00)
[2019-07-05] MEDS ORDERED: predniSONE 20 MG TAB PO SCH (10:00)
== END 2019-07-04 17:45 | disposition home or self-care (01) | DRG 871 ==
LOC: ER 09:43 → TELE 09:44 → TELE-WESTW 15:58
PROVIDERS: ADMIT Nurse Practitioner Acute Care; ATTEND Internal Medicine
DX: A41.9 Sepsis, unspecified organism (principal); J18.9 Pneumonia, unspecified organism; I50.33 Acute on chronic diastolic (congestive) heart failure; J96.00 Acute respiratory failure, unspecified whether with hypoxia or hypercapnia; J45.901 Unspecified asthma with (acute) exacerbation; I13.0 Hypertensive heart and chronic kidney disease with heart failure and stage 1 through stage 4 chronic kidney disease, or unspecified chronic kidney disease; J98.11 Atelectasis; Z68.41 Body mass index [BMI] 40.0-44.9, adult; E03.9 Hypothyroidism, unspecified; E11.649 Type 2 diabetes mellitus with hypoglycemia without coma; N18.3 Chronic kidney disease, stage 3 (moderate); E66.01 Morbid (severe) obesity due to excess calories; D64.9 Anemia, unspecified; E78.5 Hyperlipidemia, unspecified; E11.22 Type 2 diabetes mellitus with diabetic chronic kidney disease; Z79.899 Other long term (current) drug therapy; Z79.4 Long term (current) use of insulin; Z90.710 Acquired absence of both cervix and uterus; Z87.01 Personal history of pneumonia (recurrent)
CPT/HCPCS: 36415; 71045; 71046; 71250; 74176; 80048; 80053; 80061; 82962; 83036; 83735; 84443; 85025; 87040; 87070; 87077; 87186; 87205; 87804; 93005; 93306; 94640; 97110; 97116; 97163; 97530; G0378; J0696; J1815; J2405

== ENCOUNTER → 2019-07-28 | Outpatient (CLI) | payer BC ==
[~2019-07-28] MED LIST changes: +FLUC200T35 PO; +LEVO500T21 PO; +PANT40TA2 PO; +SIMV10TA84 PO
[2019-07-28 16:14] LABS: Albumin 3.6 g/dL (3.4-5.0); BUN/Creatinine Ratio 19.3
[2019-07-28 16:17] LABS: Bilirubin, Total 0.4 mg/dL (0.2-1.0); Total Protein 7.7 g/dL (6.4-8.2)
== END | disposition home or self-care (01) ==
LOC: LAB 15:47
PROVIDERS: ATTEND Internal Medicine
DX: E10.65 Type 1 diabetes mellitus with hyperglycemia (principal); I10 Essential (primary) hypertension
CPT/HCPCS: 36415; 80053; 83036

== ENCOUNTER 2019-08-03 17:49 | Emergency (ER) | payer SELFPAY ==
[~2019-08-03] VITALS: Ht 175.3 cm; Wt 124.7 kg
[2019-08-03 19:35] LABS: Basophils # (auto) 0.1 10 ^3/uL (0-0.2); Basophils % (auto) 0.9 % (0.0-2.0); Eosinophils # (auto) 0.1 10 ^3/uL (0-0.8); Eosinophils % (auto) 1.4 % (0.0-7.0); Hematocrit 34.9 % (36.0-46.0); Hemoglobin 11.4 g/dL (12.2-16.2); Lymphocytes # (auto) 1.3 10 ^3/uL (0.4-5.4); Mean Corpuscular Hemoglobin 25.4 pg (28.0-32.0); Mean Corpuscular Hgb Conc. 32.7 g/dL (32.0-36.0); Mean Corpuscular Volume 77.8 fL (80.0-100.0); Monocytes # (auto) 0.5 10 ^3/uL (0-1.3); Monocytes % (auto) 7.5 % (0.0-12.0); Neutrophils # (auto) 5.1 10 ^3/uL (1.6-8.6); Neutrophils % (auto) 72.2 % (37.0-80.0); Nucleated Red Blood Cells % 0.1 %; Platelet Count (auto) 394 10^3/uL (140-450); Red Blood Cells 4.49 10^6/uL (4.0-5.20); Red Cell Distribution Width 16.5 % (11.8-14.3); White Blood Cell 7.1 10^3/uL (4.4-10.8)
[2019-08-03 19:54] LABS: Albumin 3.7 g/dL (3.4-5.0); Calcium 9.1 mg/dL (8.5-10.1); Potassium 3.7 mmol/L (3.5-5.1)
[2019-08-03 19:57] LABS: Bilirubin, Total 0.3 mg/dL (0.2-1.0); Total Protein 7.8 g/dL (6.4-8.2)
[2019-08-03 21:33] VITALS: BP 156/98
[2019-08-03] MEDS ORDERED: IPRATROPIUM BROM 0.5 MG/2.5ML INH SOL NEB ONE (21:45)
[2019-08-03] MEDS ORDERED: methylPREDNISolone SOD SUCC 125 MG/2 ML VL IM ONE (21:45)
[2019-08-03] MEDS ORDERED: ALBUTEROL SULF 2.5 MG/0.5ML(0.5%) NEB SOLN NEB ONE (21:45)
== END 2019-08-03 22:09 | disposition home or self-care (01) ==
LOC: ER 17:49
DX: J45.901 Unspecified asthma with (acute) exacerbation (principal); E11.9 Type 2 diabetes mellitus without complications; Z90.710 Acquired absence of both cervix and uterus; Z90.89 Acquired absence of other organs
CPT/HCPCS: 36415; 71046; 80053; 85025; 93005; 94640; 99285; J2930; J7644

== ENCOUNTER 2020-03-19 17:06 | Inpatient (IN) | payer MEDICAID, OTHER ==
[~2020-03-19] VITALS: Ht 175.3 cm; Wt 111.6 kg
[2020-03-19] MEDS ORDERED: ALBUTEROL SULF 2.5 MG/0.5ML(0.5%) NEB SOLN ONE (17:28)
[2020-03-19] MEDS ORDERED: IPRATROPIUM BROM 0.5 MG/2.5ML INH SOL ONE (17:28)
[2020-03-19] MEDS ORDERED: SODIUM CHLORIDE 0.9% 1,000 ML IV ONE (17:30)
[2020-03-19] MEDS ORDERED: methylPREDNISolone SOD SUCC 125 MG/2 ML VL IV ONE (17:30)
[2020-03-19] MEDS ORDERED: ALBUTEROL SULF 2.5 MG/0.5ML(0.5%) NEB SOLN NEB ONE ×2 (17:30→19:15)
[2020-03-19] MEDS ORDERED: IPRATROPIUM BROM 0.5 MG/2.5ML INH SOL NEB ONE ×2 (17:30→19:15)
[2020-03-19] MEDS ORDERED: AZITHROMYCIN 500MG/ 250ML 250 ML IV ONE (18:15)
[2020-03-19] MEDS ORDERED: cefTRIAXone 1GM/50ML D5W 50 ML IV ONE (18:15)
[2020-03-19 19:00] LABS: Eosinophils # (auto) 0.1 10 ^3/uL (0-0.8); Neutrophils # (auto) 4.6 10 ^3/uL (1.6-8.6); Platelet Count (auto) 335 10^3/uL (140-450)
[2020-03-19] MEDS ORDERED: MORPHINE SULF INJ 2 MG/ML SYRINGE 1ML IV PRN ×3 (19:00→23:30)
[2020-03-19] MEDS ORDERED: NITROGLYCERIN 0.4 MG SL TAB SL PRN ×2 (19:00→23:30)
[2020-03-19 19:02] LABS: Basophils # (auto) 0.1 10 ^3/uL (0-0.2); Basophils % (auto) 0.9 % (0.0-2.0); Hematocrit 36.4 % (36.0-46.0); Hemoglobin 11.7 g/dL (12.2-16.2); Lymphocytes # (auto) 1.6 10 ^3/uL (0.4-5.4); Lymphocytes % (auto) 23.4 % (10.0-50.0); Mean Corpuscular Hemoglobin 25.3 pg (28.0-32.0); Mean Corpuscular Hgb Conc. 32.3 g/dL (32.0-36.0); Mean Corpuscular Volume 78.5 fL (80.0-100.0); Monocytes # (auto) 0.5 10 ^3/uL (0-1.3); Monocytes % (auto) 6.9 % (0.0-12.0); Neutrophils % (auto) 67.8 % (37.0-80.0); Red Blood Cells 4.64 10^6/uL (4.0-5.20); Red Cell Distribution Width 16.2 % (11.8-14.3); White Blood Cell 6.8 10^3/uL (4.4-10.8)
[2020-03-19 19:04] LABS: Alanine Aminotransferase 36 U/L (13-56); Albumin 3.7 g/dL (3.4-5.0); Anion Gap 10 (5-15); Aspartate Aminotransferase 20 U/L (15-37); BUN/Creatinine Ratio 17.3; Blood Urea Nitrogen 17 mg/dL (7-18); Calcium 8.7 mg/dL (8.5-10.1); Carbon Dioxide 24 mmol/L (21-32); Chloride 104 mmol/L (98-107); GFR African American 75 mL/min; GFR Non-African American 62 mL/min; Glucose 328 mg/dL (74-106); Potassium 3.5 mmol/L (3.5-5.1); Sodium 138 mmol/L (136-145)
[2020-03-19 19:08] LABS: Alkaline Phosphatase 131 U/L (45-117); Bilirubin, Total 0.6 mg/dL (0.2-1.0); Total Protein 7.6 g/dL (6.4-8.2)
[2020-03-19] MEDS ORDERED: hydrALAZINE HCL 20 MG/ML VL IV ONE (19:15)
[2020-03-19] MEDS ORDERED: DEXTROSE (50%) 50ML SYRG IV PRN ×2 (21:15→23:30)
[2020-03-19] MEDS ORDERED: SIMV5TAB50 PO (21:48)
[2020-03-19] MEDS ORDERED: ALBU0.084 NEB (21:48)
[2020-03-19] MEDS ORDERED: LEV88T PO (21:48)
[2020-03-19] MEDS ORDERED: INSU100I51 SC (21:48)
[2020-03-19] MEDS ORDERED: HCTZ25T PO (21:48)
[2020-03-19] MEDS ORDERED: ALBUAER3 IN (21:48)
[2020-03-19] MEDS ORDERED: POTA-180 PO (21:48)
[2020-03-19] MEDS ORDERED: MULT1TAB65 PO (21:49)
[2020-03-19 22:00] VITALS: BP 147/89
[2020-03-19] MEDS ORDERED: InsuLIN REG 1unit/0.01ml Soln (100units/ml) SC SCH (22:00)
[2020-03-19] MEDS ORDERED: ACCU-CHEK COMFORT CURVE STRIP VI SCH (22:00)
[2020-03-19 22:47] VITALS: BP 147/89
[2020-03-19] MEDS ORDERED: HYDROcodone-ACET 5/325MG TAB PO PRN (23:30)
[2020-03-19] MEDS ORDERED: ONDANSETRON HCL 4 MG/2 ML VIAL IV PRN (23:30)
[2020-03-19] MEDS ORDERED: DOCUSATE SOD 100 MG CAP PO PRN (23:30)
[2020-03-19] MEDS ORDERED: ACETAMINOPHEN 325 MG TAB PO PRN (23:30)
[2020-03-19] MEDS ORDERED: LORazepam 0.5 MG TAB PO PRN (23:30)
[2020-03-19] MEDS ORDERED: cloNIDine HCL 0.1 MG TAB PO PRN (23:45)
[2020-03-19] MEDS ORDERED: MULTIPLE VITAMINS W/ MINERALS TAB PO ONE (23:45)
[2020-03-19 23:53] VITALS: BP 147/89
[2020-03-20] MEDS ORDERED: PANTOPRAZOLE 40 MG/10 ML VIAL INJ IV ONE
[2020-03-20 01:24] LABS: Cholesterol 207 mg/dL (< 200)
[2020-03-20 01:27] LABS: HDL Cholesterol 74 mg/dL (40-59); LDL Cholesterol 119 mg/dL (< 100); Triglycerides 70 mg/dL (< 150)
[2020-03-20] MEDS: ALBUTEROL SULF 2.5 MG/0.5ML(0.5%) NEB SOLN NEB SCH ×7 (02:39→22:05)
[2020-03-20] MEDS: IPRATROPIUM BROM 0.5 MG/2.5ML INH SOL NEB SCH ×7 (02:39→22:04)
[2020-03-20 05:00] VITALS: BP 129/68
[2020-03-20] MEDS: LEVOTHYROXINE SODIUM 88 MCG TAB PO SCH (05:44)
[2020-03-20] MEDS: FUROSEMIDE 20 MG/2 ML VIAL IV SCH ×2 (05:44→18:12)
[2020-03-20] MEDS: methylPREDNISolone SOD SUCC 40 MG/ML VL IV SCH ×3 (05:45→21:58)
[2020-03-20] MEDS: ACCU-CHEK COMFORT CURVE STRIP VI SCH ×4 (05:54→22:00)
[2020-03-20] MEDS: InsuLIN REG 1unit/0.01ml Soln (100units/ml) SC SCH ×3 (06:31→18:12)
[2020-03-20] MEDS ORDERED: InsuLIN REG 1unit/0.01ml Soln (100units/ml) SC SCH ×2 (07:00→22:00)
[2020-03-20 07:14] LABS: Basophils # (auto) 0 10 ^3/uL (0-0.2); Eosinophils # (auto) 0 10 ^3/uL (0-0.8); Lymphocytes # (auto) 0.4 10 ^3/uL (0.4-5.4); Monocytes # (auto) 0.1 10 ^3/uL (0-1.3); Neutrophils # (auto) 5.5 10 ^3/uL (1.6-8.6)
[2020-03-20 07:17] LABS: Basophils % (auto) 0.1 % (0.0-2.0); Hematocrit 35.7 % (36.0-46.0); Hemoglobin 11.7 g/dL (12.2-16.2); Mean Corpuscular Hemoglobin 25.4 pg (28.0-32.0); Mean Corpuscular Hgb Conc. 32.8 g/dL (32.0-36.0); Mean Corpuscular Volume 77.5 fL (80.0-100.0); Monocytes % (auto) 1.9 % (0.0-12.0); Platelet Count (auto) 379 10^3/uL (140-450); Red Blood Cells 4.61 10^6/uL (4.0-5.20); Red Cell Distribution Width 16.2 % (11.8-14.3)
[2020-03-20 07:23] LABS: INR 0.96 (0.9-1.15)
[2020-03-20 07:37] LABS: Potassium 3.5 mmol/L (3.5-5.1)
[2020-03-20 07:46] LABS: BUN/Creatinine Ratio 18.1
[2020-03-20 07:47] LABS: Albumin 3.8 g/dL (3.4-5.0); Bilirubin, Total 0.4 mg/dL (0.2-1.0); Calcium 9.4 mg/dL (8.5-10.1); Magnesium 2.3 mg/dL (1.6-2.6); Total Protein 7.8 g/dL (6.4-8.2)
[2020-03-20 09:00] VITALS: BP 138/82
[2020-03-20] MEDS ORDERED: PANTOPRAZOLE 40 MG/10 ML VIAL INJ IV SCH (10:00)
[2020-03-20] MEDS ORDERED: POTASSIUM CHL 20 Meq TABLET PO SCH (10:00)
[2020-03-20] MEDS: AZITHROMYCIN 500MG/ 250ML 250 ML IV SCH (11:01)
[2020-03-20] MEDS: ASPirin 81 mg TAB PO SCH (11:02)
[2020-03-20] MEDS: MULTIPLE VITAMINS W/ MINERALS TAB PO SCH (11:02)
[2020-03-20] MEDS: ENOXAPARIN SOD 40 MG/0.4 ML SYRINGE SC SCH (11:03)
[2020-03-20 13:00] VITALS: BP 149/70
[2020-03-20] MEDS ORDERED: TEMAZEPAM 15 MG CAP PO PRN (13:00)
[2020-03-20 17:00] VITALS: BP 124/59
[2020-03-20 21:46] VITALS: BP 137/79
[2020-03-20] MEDS: INSULIN LANTUS (GLARGINE) 1 /0.01ml (100units/ml) SC SCH (21:58)
[2020-03-20] MEDS: POTASSIUM CHL 20 Meq TABLET PO SCH (21:59)
[2020-03-20] MEDS ORDERED: MONTELUKAST SODIUM 10 MG TAB PO SCH (22:00)
[2020-03-20] MEDS: FAMOTIDINE 20 MG TAB PO SCH (22:00)
[2020-03-20] MEDS ORDERED: ATORVASTATIN 20 MG TAB PO SCH (22:00)
[2020-03-20] MEDS ORDERED: DEXTROSE (50%) 50ML SYRG IV PRN (22:45)
[2020-03-21] MEDS: InsuLIN REG 1unit/0.01ml Soln (100units/ml) SC SCH ×6 (00:09→16:22)
[2020-03-21] MEDS: INSULIN LANTUS (GLARGINE) 1 /0.01ml (100units/ml) SC SCH ×2 (00:10→06:07)
[2020-03-21] MEDS: ACCU-CHEK COMFORT CURVE STRIP VI SCH ×5 (00:10→16:20)
[2020-03-21] MEDS: IPRATROPIUM BROM 0.5 MG/2.5ML INH SOL NEB SCH ×5 (02:05→19:12)
[2020-03-21] MEDS: ALBUTEROL SULF 2.5 MG/0.5ML(0.5%) NEB SOLN NEB SCH ×5 (02:05→19:12)
[2020-03-21 04:46] VITALS: BP 119/61
[2020-03-21] MEDS: LEVOTHYROXINE SODIUM 88 MCG TAB PO SCH (06:12)
[2020-03-21] MEDS: FUROSEMIDE 20 MG/2 ML VIAL IV SCH ×2 (06:12→18:00)
[2020-03-21] MEDS: methylPREDNISolone SOD SUCC 40 MG/ML VL IV SCH (06:12)
[2020-03-21 07:13] LABS: BUN/Creatinine Ratio 26.8; Calcium 9.1 mg/dL (8.5-10.1)
[2020-03-21] MEDS: MULTIPLE VITAMINS W/ MINERALS TAB PO SCH (08:21)
[2020-03-21] MEDS: POTASSIUM CHL 20 Meq TABLET PO SCH (08:21)
[2020-03-21] MEDS: ASPirin 81 mg TAB PO SCH (08:21)
[2020-03-21] MEDS: FAMOTIDINE 20 MG TAB PO SCH (08:21)
[2020-03-21] MEDS: ENOXAPARIN SOD 40 MG/0.4 ML SYRINGE SC SCH (08:22)
[2020-03-21 09:04] VITALS: BP 143/75
[2020-03-21] MEDS: AZITHROMYCIN 500MG/ 250ML 250 ML IV SCH (09:46)
[2020-03-21 12:49] VITALS: BP 146/82
[2020-03-21] MEDS ORDERED: DOXY-338 PO (15:51)
[2020-03-21] MEDS ORDERED: FAMO20TA10 PO (15:51)
[2020-03-21] MEDS ORDERED: PRED20TA2 PO (15:51)
[2020-03-21] MEDS ORDERED: IPR002IS HHN (15:51)
[2020-03-21] MEDS ORDERED: MONT10TA23 PO (15:53)
[2020-03-21] MEDS ORDERED: InsuLIN REG 1unit/0.01ml Soln (100units/ml) SC ONE (16:15)
[2020-03-21 16:25] VITALS: BP 137/72
[2020-03-21 16:57] VITALS: BP 137/72
== END 2020-03-21 19:00 | disposition home or self-care (01) | DRG 145 ==
LOC: ER 17:06 → TELE 17:07 → TELE-CENTR 21:19
PROVIDERS: ADMIT Hospitalist; ATTEND Internal Medicine
DX: J20.9 Acute bronchitis, unspecified (principal); J45.901 Unspecified asthma with (acute) exacerbation; J96.00 Acute respiratory failure, unspecified whether with hypoxia or hypercapnia; E11.65 Type 2 diabetes mellitus with hyperglycemia; I10 Essential (primary) hypertension; E66.01 Morbid (severe) obesity due to excess calories; D64.9 Anemia, unspecified; K21.9 Gastro-esophageal reflux disease without esophagitis; K29.70 Gastritis, unspecified, without bleeding; E89.0 Postprocedural hypothyroidism; J98.11 Atelectasis; E78.5 Hyperlipidemia, unspecified; Z79.899 Other long term (current) drug therapy; Z90.710 Acquired absence of both cervix and uterus; Z90.89 Acquired absence of other organs; Z80.7 Family history of other malignant neoplasms of lymphoid, hematopoietic and related tissues; Z83.49 Family history of other endocrine, nutritional and metabolic diseases; Z79.4 Long term (current) use of insulin; Z68.36 Body mass index [BMI] 36.0-36.9, adult
CPT/HCPCS: 36415; 36600; 71045; 80048; 80053; 80061; 82805; 82962; 83036; 83735; 84100; 84484; 85025; 85610; 85730; 87040; 87070; 87804; 87880; 94640; 94644; 96365; 96366; 96368; 96375; C9113; G0378; J0696; J1815; J2405

== ENCOUNTER 2025-05-12 16:37 | Inpatient (IN) | payer OTHER, MEDICAID ==
[~2025-05-12] VITALS: Ht 175.3 cm; Wt 128.2 kg
[~2025-05-12 16:37] MED LIST changes: +ALBU0.084 NEB; +ALBUAER3 IN; +DOXY1CAP58 PO; +FAMO20TA10 PO; -FLUC200T35 PO; -HYDR12.56 PO; +HYDR25TA5 PO; +INSU100I51 SC; -INSUINJ47; +IPR002IS HHN; +LEVO-177 PO; -LEVO500T21 PO; -LEVO88TA36 PO; +MONT10TA23 PO; +MULT1TAB65 PO; -PANT40TA2 PO; -POT10T PO; +POTA-180 PO; +PRED20TA2 PO; -SIMV10TA84 PO; +SIMV5TAB14 PO
--- NOTE | 2025-05-12 16:57 | ECG ---
[facility] Test Date: 2025-05-12 Test Time: 16:56:22 Pat Name: OSMEL MCLAUGHLIN Department: ED Room: 0284 Gender: F Horticulture Supervisor: ROSHAN : 1960 Requested By: STEFANO FU Order Number: [id number] Reading MD: Robert Hatfield Measurements Intervals [place] Rate: 94 P: 5 IL: 159 QRS: 6 QRSD: 84 T: 71 QT: 360 QTc: 451 Interpretive Statements Sinus rhythm Low voltage, precordial leads Minimal ST depression, lateral leads Baseline wander in lead(s) II,III,aVF Electronically Signed On 05-15-2025 15:23:50 PST by Robert Hatfield Please click the below link to view image of tracing.
--- NOTE | 2025-05-12 17:07 | ED.PDOC ---
SOB-HPI HPI Comments 64 y.o female presents to the ED for a chief complaint of SOB x 3 days but has progressively worsened. Patient presents with audible wheezing and is unable to complete full sentences. Patient states running out of her medication and is not able to get it until after the 25th of this month. Patient denies any chest pain, fever, chills, leg swelling, nausea or vomiting. Chief Complaint: Shortness of Breath Time Seen by MD: 17:00 Primary Care Provider: BENNY TELLEZ Reviewed notes: Nurses Notes, Medications, Allergies (Allergies listed above) Information Source: Patient Mode of Arrival: Ambulatory Severity: Moderate Timing: Days (3) Duration: Since onset Context: At Rest History of: Asthma Modifying Factors: Nothing Associated Signs and Symptoms: None Past Medical History PAST MEDICAL HISTORY: Anemia, Asthma, DM, Thyroid Surgical History: , Hysterectomy, Thyroidectomy, Tonsillectomy PILE DRIVING SUPERINTENDENT History: No Pertinent PILE DRIVING SUPERINTENDENT History Family History Family History: Reviewed,noncontributory to illness Social History Smoker: Non-Smoker Alcohol: Occasionally Drugs: Denies Drug Use Lives In: Home Constitutional: denies: chills, diaphoresis, fatigue, fever, malaise, sweats, weakness, others EENTM: denies: blurred vision, double vision, ear bleeding, ear discharge, ear drainage, ear pain, ear ringing, eye pain, eye redness, hearing loss, mouth pain, mouth swelling, nasal discharge, nose bleeding, nose congestion, nose pain, photophobia, tearing, throat pain, throat swelling, voice changes, others Respiratory: reports: SOB at rest, shortness of breath, SOB with excertion, wheezing; denies: cough, hemoptysis, orthopnea, stridor, others Cardiovascular: denies: chest pain, dizzy spells, diaphoresis, Dyspnea on exertion, edema, irregular heart beat, left arm pain, lightheadedness, palpitations, PND, syncope, others Gastrointestinal: denies: abdomen distended, abdominal pain, blood streaked bowels, constipated, diarrhea, dysphagia, difficulty swallowing, hematemesis, melena, nausea, poor appetite, poor fluid intake, rectal bleeding, rectal pain, vomiting, others Genitourinary: denies: abnormal vagina bleeding, burning, dyspareunia, dysuria, flank pain, frequency, hematuria, incontinence, pain, , vagina discharge, urgency, others Neurological: denies: dizziness, fainting, headache, left sided numbness, left sided weakness, numbness, paresthesia, pre-existing deficit, right sided numbness, right sided weakness, seizure, speech problems, tingling, tremors, weakness, others Musculoskeletal: denies: back pain, gout, joint pain, joint swelling, muscle pain, muscle stiffness, neck pain, others Integumetry: denies: bruises, change in color, change in hair/nails, dryness, laceration, lesions, lumps, rash, wounds, others Allergic/Immunocompromised: denies: Difficulty Healing, Frequent Infections, Hives, Itching, others Hematologic/Lymphatic: denies: anemia, blood clots, easy bleeding, easy bruising, swollen glands, others Endocrine: denies: excessive hunger, excessive sweating, excessive thirst, excessive urination, flushing, intolerance to cold, intolerance to heat, unexplained weight gain, unexplained weight loss, others Psychiatric: denies: anxiety, bipolar disorder, depression, hopeless, panic disorder, schizophrenia, sleepless, suicidal, others All Other Systems: Reviewed and Negative Physical Exam General Appearance: Moderate Distress HEENT: Normal ENT Inspection, Pharynx Normal, TMs Normal Neck: Full Range of Motion, Non-Tender, Normal, Normal Inspection Respiratory: Chest Non-Tender, Decreased Breath Sounds, No Accessory Muscle Use, Respiratory Distress, Wheezing Cardiovascular: No Edema, No JVD, No Murmur, No Gallop, Normal Peripheral Pu lses, Regular Rate/Rhythm Breast Exam: Deferred Gastrointestinal: No Organomegaly, Non Tender, No Pulsatile Mass, Normal Bowel Sounds, Soft Genitalia: Deferred Pelvic: Deferred Rectal: Deferred Extremities: No calf tenderness, Normal capillary refill, Normal inspection, Normal range of motion, Non-tender, No pedal edema Musculoskeletal : Apperance: Normal Neurologic: Alert, enrolled agent II-XII nml as Tested, Motor Weakness, Normal Affect, Normal Mood, No Sensory Deficits Cerebellar Function: Normal Reflexes: Normal Skin: Dry, Normal Color, Warm Lymphatic: No Adenopathy EKG EKG : Pulse Rate (adult): 94 Cardiac Rhythm: NSR Was a procedure done? Was a procedure done?: No Differential Dx Differential Diagnosis: Asthma, COPD, Hyperventilation, Pneumonia, Pulmonary Embolism, URI X-Ray, Labs, Meds, VS Vital Signs Date Time Temp Pulse Resp B/P (MAP) Pulse Ox O2 Delivery O2 Flow Rate FiO2 05/12/25 19:04 97.9 112 18 151/74 (99) 99 97.9 05/12/25 17:51 22 83 Room Air* 0 21 05/12/25 17:07 94 05/12/25 16:56 94 05/12/25 16:40 98.4 95 24 155/96 97 98.4 Lab Test 05/12/25 17:48 Range/Units White Blood Count 5.7 4.4-10.8 10^3/uL Red Blood Count 4.35 4.0-5.20 10^6/uL Hemoglobin 11.1 L 12.2-16.2 g/dL Hematocrit 34.4 L 36.0-46.0 % Mean Corpuscular Volume 79.0 L 80.0-100.0 fL Mean Corpuscular Hemoglobin 25.5 L 28.0-32.0 pg Mean Corpuscular Hemoglobin Concent 32.3 32.0-36.0 g/dL Red Cell Distribution Width 15.9 H 11.8-14.3 % Platelet Count 365 140-450 10^3/uL Mean Platelet Volume 7.4 6.9-10.8 fL Neutrophils (%) (Auto) 66.2 37.0-80.0 % Lymphocytes (%) (Auto) 24.0 10.0-50.0 % Monocytes (%) (Auto) 8.0 0.0-12.0 % Eosinophils (%) (Auto) 1.5 0.0-7.0 % Basophils (%) (Auto) 0.3 0.0-2.0 % Neutrophils # (Auto) 3.8 1.6-8.6 10 ^3/uL Lymphocytes # (Auto) 1.4 0.4-5.4 10 ^3/uL Monocytes # (Auto) 0.5 0-1.3 10 ^3/uL Eosinophils # (Auto) 0.1 0-0.8 10 ^3/uL Basophils # (Auto) 0 0-0.2 10 ^3/uL Nucleated Red Blood Cells 0.0 % Sodium Level 140 136-145 mmol/L Potassium Level 3.6 3.5-5.1 mmol/L Chloride Level 102 98-107 mmol/L Carbon Dioxide Level 27 20-31 mmol/L Anion Gap 11 5-15 Blood Urea Nitrogen 14 9-23 mg/dL Creatinine 0.94 0.550-1.02 mg/dL Glomerular Filtration Rate Calc 68 >90 mL/min BUN/Creatinine Ratio 14.9 10.0-20.0 Serum Glucose 200 H 74-106 mg/dL Calcium Level 9.5 8.7-10.4 mg/dL B-Type Natriuretic Peptide 23.68 0-100 pg/mL Current Medications Medications (Trade) Dose Ordered Sig/Payton Route Start Time Stop Time Status Last Admin Ipratropium Dunlevy (Atrovent Medneb) 1 mg ONCE ONCE [facility] 05/12/25 17:15 05/12/25 17:16 DC 05/12/25 17:51 Albuterol (Ventolin Medneb) 20 mg ONCE ONCE [facility] 05/12/25 17:15 05/12/25 17:16 DC 05/12/25 17:50 Dexamethasone Sodium Phosphate (Decadron Injection) 10 mg ONCE ONCE IV 05/12/25 17:15 05/12/25 17:16 DC 05/12/25 18:28 Diphenhydramine HCl (Benadryl Injection) 25 mg ONCE ONCE IV 05/12/25 19:00 05/12/25 19:01 [place] 05/12/25 18:53 IV Hep-Lock was established. The patient was given continuous breathing treatment of albuterol and Atrovent. The patient was also given Decadron 10 mg IV push The patient was given Benadryl 25 mg IV push because she started feeling somewhat different she stated after taking the Decadron. She states that she is allergic to methylprednisolone The patient's CBC shows mild anemia with a hemoglobin of 11.1 and hematocrit of 34 The chemistry panel is within normal limits The patient's chest x-ray shows: IMPRESSION: Cardiomegaly with pulmonary vascular congestion and bilateral patchy airspace opacities. Small bilateral pleural effusions The patient is given Lasix 40 mg IV push The patient is being admitted to the hospitalist at this time. Images Reviewed?: Images reviewed and evaluated by me Time of 1ST Reevaluation: 17:04 Reevaluation 1ST: Unchanged Patient Education/Counseling: Diagnosis, Treatment, Prognosis Family Education/Counseling: No Family Present SEPSIS Sepsis Screen Date sepsis recognized/suspect: May 12, 2025 Time Sepsis recognized/suspect: 1644 Recent Procedure: No On Antibiotic Therapy: No Respiratory Rate >20: Yes Heart Rate >90: Yes Temp<36 C (96.8 F) or >38.3 C: No SBP <90 or MAP <65 mmHG: No New Acute Mental Status Change: No Is the patient on CPAP, BIPAP,: No Physician Orders Urinalysis (05/12/25 17:08) Med Neb Initial Treatment (05/12/25 17:08) Heplock Iv (05/12/25 17:08) Pulse Oximetry (05/12/25 17:08) Concrete Laborer (05/12/25 17:08) Blood Pressure (05/12/25 17:08) Chest Two Views Routine (05/12/25 17:08) Vital Signs Date Time Temp Pulse Resp B/P (MAP) Pulse Ox O2 Delivery O2 Flow Rate FiO2 05/12/25 19:04 97.9 112 18 151/74 (99) 99 97.9 05/12/25 17:51 22 83 Room Air* 0 21 05/12/25 17:07 94 05/12/25 16:56 94 05/12/25 16:40 98.4 95 24 155/96 97 98.4 Laboratory Tests Test 05/12/25 17:48 White Blood Count 5.7 10^3/uL (4.4-10.8) Medications Medications Dose Ordered Sig/Payton Route Start Time Stop Time Status Last Admin Dose Admin Albuterol 20 mg ONCE ONCE N 05/12/25 17:15 05/12/25 17:16 DC 05/12/25 17:50 Dexamethasone Sodium Phosphate 10 mg ONCE ONCE IV 05/12/25 17:15 05/12/25 17:16 DC 05/12/25 18:28 Diphenhydramine HCl 25 mg ONCE ONCE IV 05/12/25 19:00 05/12/25 19:01 DC 05/12/25 18:53 Ipratropium Dunlevy 1 mg ONCE ONCE N 05/12/25 17:15 05/12/25 17:16 DC 05/12/25 17:51 Departure 1 Departure Time of Disposition: 19:41 Impression: Primary Impression: Acute respiratory failure Qualified Codes: J96.01 - Acute respiratory failure with hypoxia Additional Impression: Generalized weakness Disposition: 09 ADMITTED INPATIENT Admit to: Tele Condition: Fair Critical Care Note Critical Care Time?: Yes (45 min-critical care time only) Stability Stability form required: Yes Unstable for transfer: Telemetry monitoring (Telemetry monitoring required), ED Physician Assesment (Clinical assesment) I personally scribed for KELLY GRAF MD ([email or web address]) on 05/12/25 at 17:07. Electronically submitted by Amalia Ellis ([facility]). KELLY GRAF MD May 12, 2025 17:07
[2025-05-12] MEDS: ALBUTEROL SULF 2.5 MG/0.5ML(0.5%) NEB SOLN HHN ONE (17:50)
[2025-05-12] MEDS: IPRATROPIUM BROM 0.5 MG/2.5ML INH SOL HHN ONE (17:51)
[2025-05-12 18:04] LABS: Hematocrit 34.4 % (36.0-46.0); Hemoglobin 11.1 g/dL (12.2-16.2); Mean Corpuscular Hemoglobin 25.5 pg (28.0-32.0); Mean Corpuscular Volume 79.0 fL (80.0-100.0); Nucleated Red Blood Cells % 0.0 %
[2025-05-12 18:12] LABS: Chloride 102 mmol/L (98-107); Potassium 3.6 mmol/L (3.5-5.1); Sodium 140 mmol/L (136-145)
[2025-05-12 18:13] LABS: Anion Gap 11 (5-15); Calcium 9.5 mg/dL (8.7-10.4); Carbon Dioxide 27 mmol/L (20-31)
[2025-05-12 18:18] LABS: BUN/Creatinine Ratio 14.9 (10.0-20.0); Blood Urea Nitrogen 14 mg/dL (9-23)
[2025-05-12 18:22] LABS: Glucose 200 mg/dL (74-106)
[2025-05-12] MEDS: diphenhydrAMINE HCL 50 MG/1 ML VL IV ONE (18:53)
--- NOTE | 2025-05-12 19:03 | DVH ---
CHEST RADIOGRAPH INDICATION: sob TECHNIQUE: XY CHEST TWO VIEWS ROUTINE COMPARISON: None FINDINGS: The cardiac silhouette is enlarged. The lungs demonstrate bilateral patchy airspace opacities. The pulmonary vasculature is prominent. Small bilateral pleural effusions. There is no pneumothorax. IMPRESSION: Cardiomegaly with pulmonary vascular congestion and bilateral patchy airspace opacities. Small bilateral pleural effusions
[2025-05-12] MEDS ORDERED: ACETAMINOPHEN 325 MG TAB PO PRN (20:30)
[2025-05-12] MEDS ORDERED: DEXTROSE (50%) 50ML SYRG IV PRN (20:30)
[2025-05-12] MEDS ORDERED: ONDANSETRON HCL 4 MG/2 ML VIAL IV PRN (20:30)
[2025-05-12] MEDS: AZITHROMYCIN 500MG/250ML 250 ML IV ONE (20:53)
[2025-05-12] MEDS: FUROSEMIDE 40 MG/4 ML VIAL IV ONE (20:53)
[2025-05-12] MEDS: ACCU-CHEK COMFORT CURVE STRIP VI SCH (22:00)
--- NOTE | 2025-05-12 22:05 | DVHHP2 ---
History of Present Illness Reason for Visit: Shortness for breath History of Present Illness 64-year-old female presents for evaluation of shortness for breath. Patient reports a three day history of worsening shortness for breath not being relieved with her inhaler or nebulizer at home. Denies cough or fever. No chest pain. Past Medical History Diabetes mellitus, thyroid, asthma Past Surgical History Hysterectomy, thyroidectomy, tonsillectomy, Family History Noncontributory Smoke: No ALCOHOL: occassional Drugs: None Lives: with Family Review of Systems Review of Systems Review of systems are currently negative otherwise addressed in HPI. Allergies: Coded Allergies: Honey (Verified Allergy, Unknown, 08/03/19) Latex (Verified Allergy, Unknown, 05/12/25) Methylprednisolone (Verified Allergy, Unknown, HIVES, 05/12/25) Medications Current Medications Medications Dose Ordered Sig/Payton Route Start Time Stop Time Status Last Admin Dose Admin Albuterol 2.5 mg Q6HPRN PRN NEB 05/12/25 20:30 Ipratropium [place] 0.5 mg Q6HPRN PRN NEB 05/12/25 20:30 Levothyroxine Sodium 88 mcg QAM@0600 PO 05/13/25 06:00 Montelukast Sodium 10 mg HS PO 05/12/25 22:00 Furosemide 40 mg DAILY PO 05/13/25 10:00 Azithromycin 250 ml @ 125 mls/hr DAILY IV 05/13/25 10:00 Diagnostic Test (Pha) 1 strip ACHS 05/12/25 22:00 Insulin Human Regular ACHS SC 05/12/25 22:00 Dextrose 50 ml UD PRN IV 05/12/25 20:30 Ondansetron HCl 4 mg Q4HP PRN IV 05/12/25 20:30 Acetaminophen 650 mg Q6HP PRN PO 05/12/25 20:30 Exam Vital Signs Vital Signs Date Time Temp Pulse Resp B/P (MAP) Pulse Ox O2 Delivery O2 Flow Rate FiO2 05/12/25 21:20 65 14 130/55 (80) 100 05/12/25 20:00 98.0 98.0 05/12/25 17:51 Room Air* 0 21 Exam Gen: 64-year-old female in mild distress Skin: Warm, dry, normal color and texture, no rash. HEENT: Normocephalic atraumatic, mucous membranes moist and pink. Neck: Cervical and supraclavicular nodes normal without enlargement, trachea is midline, thyroid gland is normal without masses. Pulmonary: Bilateral wheeze Cardiac: Regular rate and rhythm. No murmur Abdomen: Soft, nontender, nondistended, bowel sounds present all 4 quadrants, no guarding, no rigidity, no organomegaly. Extremities: No cyanosis, clubbing, no edema Neuro: Cranial nerves II through XII grossly intact, normal affect and speech, no focal motor deficits. Labs/Xrays ORDERING PHYSICIAN: KELLY GRAF MD PROCEDURE(s): CXR2 - CHEST TWO VIEWS ROUTINE REASON: sob ORDER NUMBER(s): [id number], ACCESSION NUMBER(s): [id number] CHEST RADIOGRAPH INDICATION: sob TECHNIQUE: XY CHEST TWO VIEWS ROUTINE COMPARISON: None FINDINGS: The cardiac silhouette is enlarged. The lungs demonstrate bilateral patchy airspace opacities. The pulmonary vasculature is prominent. Small bilateral pleural effusions. There is no pneumothorax. IMPRESSION: Cardiomegaly with pulmonary vascular congestion and bilateral patchy airspace opacities. Small bilateral pleural effusions Labs Test 05/12/25 17:48 Range/Units White Blood Count 5.7 4.4-10.8 10^3/uL Red Blood Count 4.35 4.0-5.20 10^6/uL Hemoglobin 11.1 L 12.2-16.2 g/dL Hematocrit 34.4 L 36.0-46.0 % Mean Corpuscular Volume 79.0 L 80.0-100.0 fL Mean Corpuscular Hemoglobin 25.5 L 28.0-32.0 pg Mean Corpuscular Hemoglobin Concent 32.3 32.0-36.0 g/dL Red Cell Distribution Width 15.9 H 11.8-14.3 % Platelet Count 365 140-450 10^3/uL Mean Platelet Volume 7.4 6.9-10.8 fL Neutrophils (%) (Auto) 66.2 37.0-80.0 % Lymphocytes (%) (Auto) 24.0 10.0-50.0 % Monocytes (%) (Auto) 8.0 0.0-12.0 % Eosinophils (%) (Auto) 1.5 0.0-7.0 % Basophils (%) (Auto) 0.3 0.0-2.0 % Neutrophils # (Auto) 3.8 1.6-8.6 10 ^3/uL Lymphocytes # (Auto) 1.4 0.4-5.4 10 ^3/uL Monocytes # (Auto) 0.5 0-1.3 10 ^3/uL Eosinophils # (Auto) 0.1 0-0.8 10 ^3/uL Basophils # (Auto) 0 0-0.2 10 ^3/uL Nucleated Red Blood Cells 0.0 % D-Dimer, Quantitative 0.72 H 0.0-0.49 mg/L FEU Sodium Level 140 136-145 mmol/L Potassium Level 3.6 3.5-5.1 mmol/L Chloride Level 102 98-107 mmol/L Carbon Dioxide Level 27 20-31 mmol/L Anion Gap 11 5-15 Blood Urea Nitrogen 14 9-23 mg/dL Creatinine 0.94 0.550-1.02 mg/dL Glomerular Filtration Rate Calc 68 >90 mL/min BUN/Creatinine Ratio 14.9 10.0-20.0 Serum Glucose 200 H 74-106 mg/dL Calcium Level 9.5 8.7-10.4 mg/dL B-Type Natriuretic Peptide 23.68 0-100 pg/mL SEPSIS Sepsis Screen Date sepsis recognized/suspect: May 12, 2025 Time Sepsis recognized/suspect: 1929 Recent Procedure: No On Antibiotic Therapy: No Respiratory Rate >20: No Heart Rate >90: No Temp<36 C (96.8 F) or >38.3 C: No SBP <90 or MAP <65 mmHG: No New Acute Mental Status Change: No Is the patient on CPAP, BIPAP,: No Physician Orders Urinalysis (05/12/25 17:08) Med Neb Initial Treatment (05/12/25 17:08) Heplock Iv (05/12/25 17:08) Pulse Oximetry (05/12/25 17:08) Rotary Shear Cutter (05/12/25 17:08) Blood Pressure (05/12/25 17:08) Chest Two Views Routine (05/12/25 17:08) Admit (05/12/25 20:04) Albuterol Medneb (Ventolin Medneb) (05/12/25 20:30) Ipratropium Medneb (Atrovent Medneb) (05/12/25 20:30) Levothyroxine Tablet (Synthroid Tablet) (05/13/25 06:00) Montelukast Tablet (Singulair Tablet) (05/12/25 22:00) Furosemide Tablet (Lasix Tablet) (05/13/25 10:00) Azithromycin 500mg/250ml (Zithromax 500m (05/13/25 10:00) Azithromycin 500mg/250ml (Zithromax 500m (05/12/25 20:30) Basic Metabolic Panel (05/13/25 04:00) Glucose Blood (Accu-Chek Comfort Curve T (05/12/25 22:00) Insulin R (Human) (Insulin R) (05/12/25 22:00) Dextrose 50% Syringe (05/12/25 20:30) Ondansetron Hcl (Zofran) (05/12/25 20:30) Cardiac Diet-2gna,Lofat,Lochol (05/13/25 Breakfast) Echo 2d Mode Cardiac Dop (05/12/25 20:18) Condition: Stable (05/12/25 20:18) Acetaminophen Tablet (Tylenol Tablet) (05/12/25 20:30) Bedrest With Bathroom Privileg (05/12/25 20:18) Vital Signs Date Time Temp Pulse Resp B/P (MAP) Pulse Ox O2 Delivery O2 Flow Rate FiO2 05/12/25 21:20 65 14 130/55 (80) 100 05/12/25 20:53 123/56 05/12/25 20:00 98.0 100 18 123/56 (78) 99 98.0 05/12/25 20:00 109 05/12/25 19:04 97.9 112 18 151/74 (99) 99 97.9 05/12/25 17:51 22 83 Room Air* 0 21 05/12/25 17:07 94 05/12/25 16:56 94 05/12/25 16:40 98.4 95 24 155/96 97 98.4 Laboratory Tests Test 05/12/25 17:48 White Blood Count 5.7 10^3/uL (4.4-10.8) Medications Medications Dose Ordered Sig/Payton Route Start Time Stop Time Status Last Admin Dose Admin Albuterol 20 mg ONCE ONCE N 05/12/25 17:15 05/12/25 17:16 DC 05/12/25 17:50 20 MG Azithromycin 250 ml @ 125 mls/hr ONCE ONCE IV 05/12/25 20:30 05/12/25 22:29 05/12/25 20:53 125 MLS/HR Dexamethasone Sodium Phosphate 10 mg ONCE ONCE IV 05/12/25 17:15 05/12/25 17:16 DC 05/12/25 18:28 10 MG Diphenhydramine HCl 25 mg ONCE ONCE IV 05/12/25 19:00 05/12/25 19:01 DC 05/12/25 18:53 25 MG Furosemide 40 mg ONCE ONCE IV 05/12/25 19:45 05/12/25 19:46 DC 05/12/25 20:53 40 MG Ipratropium [place] 1 mg ONCE ONCE N 05/12/25 17:15 05/12/25 17:16 DC 05/12/25 17:51 1 MG Assessment/Plan Assessment/Plan Assessment Acute on chronic respiratory failure Asthma exacerbation Questionable pneumonia Cardiomegaly Rule out heart failure Plan Admit the patient to Med surge to the hospitalist Azithromycin Med nebs Echocardiogram pending Resume home medications Continue treatment per orders. Plan discussed with: Patient My Orders Orders - ARMANI BOSWELL Procedure Category Date Status Time Admit ADMIT 05/12/25 Transmitted 20:04 Albuterol Medneb PHA 05/12/25 In Process (Ventolin Medneb) 20:30 Ipratropium Medneb PHA 05/12/25 In Process (Atrovent Medneb) 20:30 Levothyroxine Tablet PHA 05/13/25 In Process (Synthroid Tablet) 06:00 Montelukast Tablet PHA 05/12/25 In Process (Singulair Tablet) 22:00 Furosemide Tablet PHA 05/13/25 In Process (Lasix Tablet) 10:00 Azithromycin PHA 05/13/25 In Process 500mg/250ml 10:00 Azithromycin PHA 05/12/25 In Process 500mg/250ml 20:30 Basic Metabolic Panel LAB 05/13/25 Verified 04:00 Glucose Blood PHA 05/12/25 In Process (Accu-Chek Comfort 22:00 Insulin R (Human) PHA 05/12/25 In Process (Insulin R) 22:00 Dextrose 50% Syringe PHA 05/12/25 In Process 20:30 Ondansetron Hcl PHA 05/12/25 In Process (Zofran) 20:30 Cardiac DIET 05/13/25 Transmitted Diet-2gna,Lofat,Lochol Breakfast Echo 2d Mode Cardiac US 05/12/25 Logged DOP 20:18 Condition: Stable SUSHIL 05/12/25 In Process 20:18 Acetaminophen Tablet PHA 05/12/25 In Process (Tylenol Tablet) 20:30 Bedrest With Bathroom SUSHIL 05/12/25 In Process Privileg 20:18 Date of Service: May 12, 2025 Billing Provider: ARMANI BOSWELL Common Visit Codes: [id number] INP/OBS CARE (HIGH) ARMANI BOSWELL May 12, 2025 22:05
[2025-05-12 22:29] VITALS: BP 151/74; PULSE 112; RESP 18; TEMP 97.9; O2SAT 96
[2025-05-12] MEDS: MONTELUKAST SODIUM 10 MG TAB PO SCH (22:43)
[2025-05-12] MEDS: InsuLIN REG 1unit/0.01ml Soln (100units/ml) SC SCH (22:43)
[2025-05-12 23:34] VITALS: BP_SYST 150; BP_SYST 151; BP_DIAS 71; BP_DIAS 74; PULSE 104; PULSE 112; RESP 18; TEMP 97.9; TEMP 98.6; O2SAT 96; O2SAT 97
[2025-05-12 23:49] VITALS: PULSE 113; RESP 20; O2SAT 98
[2025-05-12] MEDS: IPRATROPIUM BROM 0.5 MG/2.5ML INH SOL NEB PRN (23:49)
[2025-05-12] MEDS: ALBUTEROL SULF 2.5 MG/0.5ML(0.5%) NEB SOLN NEB PRN (23:49)
[2025-05-12 23:57] VITALS: PULSE 104; RESP 20; O2SAT 100
[2025-05-13] VITALS (16 sets, daily range): BP systolic 110–150; BP diastolic 57–74; PULSE 81–107; RESP 16–24; TEMP 97.5–98; O2SAT 96–100
[2025-05-13] MEDS ORDERED: [UNRECOGNIZED DRUG - CODE] SC (01:04)
[2025-05-13] MEDS ORDERED: LISI20TA56 PO (01:04)
[2025-05-13] MEDS ORDERED: ASPI81CH59 PO (01:04)
[2025-05-13] MEDS ORDERED: HYDR25TA4 PO (01:04)
[2025-05-13] MEDS ORDERED: INSU100I28 IJ (01:04)
[2025-05-13] MEDS ORDERED: LORA-622 PO (01:04)
[2025-05-13] MEDS ORDERED: SIMV20TA20 PO (01:04)
[2025-05-13] MEDS ORDERED: POTA-36 PO (01:04)
[2025-05-13] MEDS ORDERED: DEXTROSE (50%) 50ML SYRG IV PRN ×2 (01:45→03:45)
[2025-05-13] MEDS: InsuLIN REG 1unit/0.01ml Soln (100units/ml) SC SCH ×2 (01:59→04:16)
[2025-05-13] MEDS: ACCU-CHEK COMFORT CURVE STRIP VI SCH ×2 (01:59→04:16)
[2025-05-13] MEDS: LEVOTHYROXINE SODIUM 88 MCG TAB PO SCH (06:46)
[2025-05-13 08:30] LABS: Sodium 137 mmol/L (136-145)
[2025-05-13 08:31] LABS: Anion Gap 16 (5-15); Carbon Dioxide 23 mmol/L (20-31)
[2025-05-13 08:32] LABS: Calcium 9.5 mg/dL (8.7-10.4)
[2025-05-13 08:36] LABS: BUN/Creatinine Ratio 11.6 (10.0-20.0); Blood Urea Nitrogen 14 mg/dL (9-23)
[2025-05-13 08:42] LABS: Chloride 98 mmol/L (98-107); Potassium 3.1 mmol/L (3.5-5.1)
[2025-05-13 08:43] LABS: Glucose 460 mg/dL (74-106)
[2025-05-13] MEDS: FUROSEMIDE 40 MG TAB PO SCH (09:26)
[2025-05-13] MEDS: INSULIN LANTUS (GLARGINE) 1 /0.01ml (100units/ml) SC SCH (09:47)
[2025-05-13] MEDS: AZITHROMYCIN 500MG/250ML 250 ML IV SCH (09:55)
--- NOTE | 2025-05-13 11:16 | DVHPN2 ---
Changes from previous H/P or p: No Changes Objective Vitals Vital Signs Date Time Temp Pulse Resp B/P (MAP) Pulse Ox O2 Delivery O2 Flow Rate FiO2 05/13/25 09:26 135/74 05/13/25 09:26 98 18 98 05/13/25 09:16 Nasal Cannula* 2 28 05/13/25 08:57 97.5 97.5 Intake/Output Intake and Output 05/13/25 07:00 Intake Total 600 ml Balance 600 ml Intake Oral 600 ml # Voids 5 Medications Current Medications Medications Dose Ordered Sig/Payton Route Start Time Stop Time Status Last Admin Dose Admin Albuterol 2.5 mg Q6HPRN PRN NEB 05/12/25 20:30 05/13/25 09:15 2.5 MG Ipratropium [place] 0.5 mg Q6HPRN PRN NEB 05/12/25 20:30 05/13/25 09:15 0.5 MG Levothyroxine Sodium 88 mcg QAM@0600 PO 05/13/25 06:00 05/13/25 06:46 88 MCG Montelukast Sodium 10 mg HS PO 05/12/25 22:00 05/12/25 22:43 10 MG Furosemide 40 mg DAILY PO 05/13/25 10:00 05/13/25 09:26 40 MG Azithromycin 250 ml @ 125 mls/hr DAILY IV 05/13/25 10:00 05/13/25 09:55 125 MLS/HR Ondansetron HCl 4 mg Q4HP PRN IV 05/12/25 20:30 Acetaminophen 650 mg Q6HP PRN PO 05/12/25 20:30 Diagnostic Test (Pha) 1 strip IQ4HR 05/13/25 04:00 05/13/25 09:26 1 STRIP Insulin Human Regular IQ4HR SC 05/13/25 04:00 05/13/25 09:48 20 UNITS Dextrose 50 ml UD PRN IV 05/13/25 03:45 Insulin Glargine 15 units BID@1000,2200 SC 05/13/25 10:00 05/13/25 09:47 15 UNITS Laboratory Results Laboratory Tests 05/12/25 17:48 05/13/25 06:17 Chemistry Test 05/12/25 17:48 05/13/25 06:17 Calcium Level 9.5 mg/dL (8.7-10.4) 9.5 mg/dL (8.7-10.4) Coagulation Test 05/12/25 17:48 D-Dimer, Quantitative 0.72 mg/L FEU (0.0-0.49) H Cardiac Markers Test 05/12/25 17:48 B-Type Natriuretic Peptide 23.68 pg/mL (0-100) Assessment/Plan Assessment/Plan Acute on chronic respiratory failure oxygen by nasal cannula Acute Asthma exacerbation albuterol Atrovent Acute community-acquired pneumonia Gram-positive versus Gram-negative: Rocephin azithromycin Guera test pending Flu test pending Cardiomegaly shortness of breath ruled out congestive heart failure cardiology consult to Dr Marshall Uncontrolled diabetes: Insulin sliding scale check A1c, patient takes NovoLog and Toujevo at home Hypothyroidism: Synthroid PCP DR Valdez Time spent 70 minutes Advanced care planning time 20 minutes Patient is full code Plan discussed with: Patient My Orders Orders - FIDEL TERRY MD Procedure Category Date Status Time Hemoglobin A1c LAB 05/13/25 Logged 10:58 Rapid Influenza A&B LAB 05/13/25 Logged 10:59 Covid19 Antigen Audrey LAB 05/13/25 Logged Ceftriaxone 1gm/50ml PHA 05/14/25 Logged (Rocephin) 09:00 Ceftriaxone 1gm/50ml PHA 05/13/25 Logged (Rocephin) 11:00 Date of Service: May 13, 2025 Billing Provider: FIDEL TERRY MD Common Visit Codes: [id number] CARE 30-74 MIN FIDEL TERRY MD May 13, 2025 11:16
--- NOTE | 2025-05-13 11:42 | DVHINCON2 ---
Date Seen: May 13, 2025 Referring Physician MD Noel Reason for Consultation Cardiomegaly with SOB rule out CHF History of Present Illness This is a pleasant 64-year-old female who presented to the emergency room with a chief complaint of shortness of breath for three days. The patient complains of progressive shortness of breath associated with wheezing. Denies cough, phlegm production, chest pain, palpitations, diaphoresis, dizziness, or syncopal events. Per patient, she suffers from severe asthma and missed her Tezpire injection earlier this month. A 12 lead electrocardiogram revealed a normal sinus rhythm. BNP level is within normal limits. Significant medical history includes hypertension, dyslipidemia, insulin-dependent diabetes mellitus, thyroid disease, severe uncontrolled asthma on biologic injection, and morbid obesity. Past Medical History Past medical history reviewed. No other significant than mentioned above. Past Surgical History Past surgical history reviewed. No other significant than mentioned above. Family History: Cancer G8 MOTHER (Non Hodgkins lymphoma) FH: thyroid disease G8 FATHER Family History Family history reviewed. Not significant for CV disease. Social History Denies the use of illicit drugs, alcohol, or tobacco use. Allergies: Coded Allergies: Honey (Verified Allergy, Unknown, 08/03/19) Latex (Verified Allergy, Unknown, 05/12/25) Methylprednisolone (Verified Allergy, Unknown, HIVES, 05/12/25) Home Meds Active Scripts Montelukast Sodium (Singulair) 10 Mg Tab, 10 MG PO QPM, #30 TAB Prov:CHANDU ROGERS MD 03/21/20 Famotidine (PEPCID TABLET) 20 Mg Tb, 1 TAB PO DAILY, #20 TAB Prov:CHANDU ROGERS MD 03/21/20 Prednisone (Prednisone) 20 Mg Tab, 20 MG PO BID, #14 MG Prov:CHANDU ROGERS MD 03/21/20 Doxycycline (Monohydrate) (Doxycycline) 100 Mg Cap, 100 MG PO BID, #10 CAP Prov:CHANDU ROGERS MD 03/21/20 Ipratropium [place] (Ipratropium [place]) 0.02 % Delmy, 0.5 % HHN TID, #30 ML Prov:CHANDU ROGERS MD 03/21/20 Reported Medications Tezepelumab-Ekko (Tezspire) 210 Mg/1.91 Ml Inj, 210 MG SC, INJ 05/13/25 Lisinopril (Lisinopril) 20 Mg Tab, 10 MG PO EOD, TAB 05/13/25 Aspirin (Aspirin Low Dose) 81 Mg Chw, 1 TAB PO DAILY, #30 TAB 3 Refills 05/13/25 Insulin Aspart (Novolog) 100 Unit/Ml Inj, 100 UNIT IJ, INJ 05/13/25 Loratadine (Claritin) 10 Mg Tab, 1 TAB PO DAILY, #30 TAB 5 Refills 05/13/25 Potassium Chloride (POTASSIUM CHLORIDE CR) 10 Meq Tb, 40 MEQ PO DAILY, TAB 05/13/25 Simvastatin (Simvastatin) 20 Mg Tab, 20 MG PO DAILY, TAB 05/13/25 Hydrochlorothiazide (Hydrochlorothiazide) 25 Mg Tab, 1 TAB PO DAILY, #30 TAB 5 Refills 05/13/25 Multiple Vitamins W/ Minerals (Multivitamin Adults 50+) 1 Tab Tab, 1 TAB PO DAILY, TAB 03/19/20 Potassium Chloride (Potassium Chloride ER) 20 Meq Tab, 20 MEQ PO DAILY, TAB 03/19/20 Albuterol Sulfate (Albuterol Sulfate) 0.083 % Neb, 1 VIAL NEB Q6HP, #50 VIAL 03/19/20 Insulin Aspart (Insulin Aspart Flexpen) 100 Unit/Ml Inj, 0 SC TID, INJ NOVOLOG SLIDING SCALE. MAX 10 UNITS PER INJECTION 03/19/20 Albuterol Sulfate (VENTOLIN MDI) 90 Mcg Ih, 2 PUFF IN Q6HP, INH 03/19/20 Levothyroxine Sodium (Levothyroxine Sodium) 88 Mcg Tab, 88 MCG PO DAILY, TAB 03/19/20 Simvastatin (Simvastatin) 5 Mg Tab, 5 MG PO HS, TAB 03/19/20 Hctz (Hydrochlorothiazide) 25 Mg Tab, 25 MG PO DAILY, TAB 03/19/20 Insulin Detemir (Levemir) Inj, 16 UNITS SC BID, INJ 03/19/15 Home Meds Home medications reviewed. Current Medications Current Medications Medications (Trade) Dose Ordered Sig/Payton Route PRN Reason Start Time Stop Time Status Last Admin Albuterol (Ventolin Medneb) 2.5 mg Q6HPRN PRN NEB SHORTNESS OF BREATH 05/12/25 20:30 05/13/25 09:15 Ipratropium [place] (Atrovent Medneb) 0.5 mg Q6HPRN PRN NEB SHORTNESS OF BREATH 05/12/25 20:30 05/13/25 09:15 Levothyroxine Sodium (Synthroid Tablet) 88 mcg QAM@0600 PO 05/13/25 06:00 05/13/25 06:46 Montelukast Sodium (Singulair Tablet) 10 mg HS PO 05/12/25 22:00 05/12/25 22:43 Furosemide (Lasix Tablet) 40 mg DAILY PO 05/13/25 10:00 05/13/25 09:26 Azithromycin 250 ml @ 125 mls/hr DAILY IV 05/13/25 10:00 05/13/25 09:55 Diagnostic Test (Pha) (Accu-Chek Comfort Curve T) 1 strip ACHS 05/12/25 22:00 05/13/25 01:49 DC 05/12/25 22:00 Insulin Human Regular (InsuLIN R) ACHS SC 05/12/25 22:00 05/13/25 01:49 DC 05/12/25 22:43 Dextrose 50 ml UD PRN IV Blood Sugar LESS THAN 60 05/12/25 20:30 05/13/25 01:49 DC Ondansetron HCl (Zofran) 4 mg Q4HP PRN IV NAUSEA / VOMITING 05/12/25 20:30 Acetaminophen (Tylenol Tablet) 650 mg Q6HP PRN PO PAIN SCALE 1-3 OR TEMP>100.4 05/12/25 20:30 Diagnostic Test (Pha) (Accu-Chek Comfort Curve T) 1 strip Q6HR 05/13/25 02:00 05/13/25 03:44 DC 05/13/25 01:59 Insulin Human Regular (InsuLIN R) Q6HR SC 05/13/25 02:00 05/13/25 03:44 DC 05/13/25 01:59 Dextrose 50 ml UD PRN IV Blood Sugar LESS THAN 60 05/13/25 01:45 05/13/25 09:29 DC Diagnostic Test (Pha) (Accu-Chek Comfort Curve T) 1 strip IQ4HR 05/13/25 04:00 05/13/25 09:26 Insulin Human Regular (InsuLIN R) IQ4HR SC 05/13/25 04:00 05/13/25 09:48 Dextrose 50 ml UD PRN IV Blood Sugar LESS THAN 60 05/13/25 03:45 Insulin Glargine (Lantus) 15 units BID@1000,2200 SC 05/13/25 10:00 05/13/25 11:18 DC 05/13/25 09:47 Ceftriaxone Sodium 50 ml @ 100 mls/hr DAILY@09 IV 05/14/25 09:00 Patient Own Medication 30 PC PO 05/13/25 13:00 UNV Review of Systems Constitutional: No symptom reported Ears, Nose, & Throat: No symptom reported Eyes: No symptom reported Neurological: No symptoms reported Pulmonary/Respiratory: SOB with wheezing Cardiovascular: No symptom reported Gastrointestinal: No symptom reported Genitourinary: No symptom reported Musculoskeletal: No symptom reported Skin: No symptom reported Psychiatric: No symptom reported Endocrine: No symptom reported Hemotologic/Lymphatic: No symptom reported Vital Signs Vital Signs Date Time Temp Pulse Resp B/P (MAP) Pulse Ox O2 Delivery O2 Flow Rate FiO2 05/13/25 09:26 135/74 05/13/25 09:26 98 18 98 05/13/25 09:16 Nasal Cannula* 2 28 05/13/25 08:57 97.5 97.5 Physical Exam General Appearance: Cooperative. Well developed. Morbidly obese. In no acute distress Head Exam: Normal inspection Neck Exam: Normal inspection. Non-tender. Normal alignment Pulmonary/Respiratory: Chest non-tender. Diminished bilateral breath sounds Cardiovascular/Chest: Regular rate and rhythm. S1, S2. NSR. No murmurs. No JVD. Peripheral Pulses: 2+ Radial (R). 2+ Radial (L). 2+ Pedal (R). 2+ Pedal (L) Abdominal Exam: Normal bowel sounds. Soft. Ankle Exam: Negative ankle edema Lower extremities: Negative lower extremity edema Neuro/Mental Status: A&O x4. Coherent Thoughts/Psych: Normal thought pattern. Appropriate mood and affect. Good judgement and insight Appearance: In no acute distress Skin Exam: Normal inspection. Normal color. Warm. Dry Labs/Diagnostic Data Labs Test 05/13/25 06:17 05/13/25 03:29 05/12/25 17:48 Range/Units Sodium Level 137 136-145 mmol/L Potassium Level 3.1 L 3.5-5.1 mmol/L Chloride Level 98 98-107 mmol/L Carbon Dioxide Level 23 20-31 mmol/L Anion Gap 16 H 5-15 Blood Urea Nitrogen 14 9-23 mg/dL Creatinine 1.21 H 0.550-1.02 mg/dL Glomerular Filtration Rate Calc 50 >90 mL/min BUN/Creatinine Ratio 11.6 10.0-20.0 Serum Glucose 460 *H 74-106 mg/dL Hemoglobin A1c 8.3 H <5.7 % A1C Calcium Level 9.5 8.7-10.4 mg/dL POC Glucose 461 *H 70-106 mg/dl White Blood Count 5.7 4.4-10.8 10^3/uL Red Blood Count 4.35 4.0-5.20 10^6/uL Hemoglobin 11.1 L 12.2-16.2 g/dL Hematocrit 34.4 L 36.0-46.0 % Mean Corpuscular Volume 79.0 L 80.0-100.0 fL Mean Corpuscular Hemoglobin 25.5 L 28.0-32.0 pg Mean Corpuscular Hemoglobin Concent 32.3 32.0-36.0 g/dL Red Cell Distribution Width 15.9 H 11.8-14.3 % Platelet Count 365 140-450 10^3/uL Mean Platelet Volume 7.4 6.9-10.8 fL Neutrophils (%) (Auto) 66.2 37.0-80.0 % Lymphocytes (%) (Auto) 24.0 10.0-50.0 % Monocytes (%) (Auto) 8.0 0.0-12.0 % Eosinophils (%) (Auto) 1.5 0.0-7.0 % Basophils (%) (Auto) 0.3 0.0-2.0 % Neutrophils # (Auto) 3.8 1.6-8.6 10 ^3/uL Lymphocytes # (Auto) 1.4 0.4-5.4 10 ^3/uL Monocytes # (Auto) 0.5 0-1.3 10 ^3/uL Eosinophils # (Auto) 0.1 0-0.8 10 ^3/uL Basophils # (Auto) 0 0-0.2 10 ^3/uL Nucleated Red Blood Cells 0.0 % D-Dimer, Quantitative 0.72 H 0.0-0.49 mg/L FEU B-Type Natriuretic Peptide 23.68 0-100 pg/mL Assessment SOB in the setting of pneumonia/asthma exacerbation Acute on chronic respiratory failure Insulin-dependent diabetes mellitus (hemoglobin A1c 8.3%) Hypertension Dyslipidemia Thyroid disease Morbid obesity Plan/Recommendation (Dr. Marshall) Case discussed with Dr. Marshall. The patient presents with shortness of breath in the setting of pneumonia and asthma exacerbation. Continue breathing treatments and antibiotic therapy per primary care team. Continue tight glycemic control. In the setting of an unremarkable transthoracic echocardiogram, there is no further cardiac workup indicated at this time. Kindly call with any questions or concerns. Thank you for allowing us to participate in this patient's care. This medical document was created using an electronic medical record system with voice recognition software and computerized dictation system. Although this document has been carefully reviewed, there might still be some phonetic and typographical errors. Occasional wrong-word or ``sound-alike substitutions may have occurred due to the inherent limitations of voice recognition software. These areas are purely typographical due to imperfections of the software programs and do not reflect any compromise in the patient's medical care. Please read the chart carefully and recognize, using context, where these substitutions have occurred. Plan discussed with: Patient, Other NYHA Physical activity limitations: NA Date of Service: May 13, 2025 Billing Provider: AKANKSHA TAO Cardiology Common Codes: [id number] INP/OBS CARE (High) AKANKSHA TAO May 13, 2025 11:42
--- NOTE | 2025-05-13 15:31 | DVHSR ---
APPROVED REPORT EXAM: Two-dimensional and M-mode echocardiogram with Doppler and color Doppler. Blood Pressure: 134/74 mmHg INDICATION ef RISK FACTORS Obesity: Height: 5'9, Weight: 279 Diabetes DIMENSIONS LVDd 4.2 (3.8-5.7cm) LA (2D) 3.2 (1.9-4.0cm) Aortic Root 3.0 (2.0-3.7cm) LVDs 2.7 (2.5-4.0cm) LA (MM) (1.9-4.0cm) Aortic Cusp Exc 1.7 (1.5-2.0cm) EF (%) 60.0 (55-70%) Rt. Atrium 3.0 (1.9-4.0cm) Asc. Aorta 3.1 cm IVSd 0.9 (0.7-1.1cm) RV (D) 3.2 (1.8-2.4cm) PWd 1.2 (0.7-1.1cm) Mitral Valve Mitral Mitral Stenosis E wave 0.75m/s MV Mean GR. 2mmHg A wave 1.14m/s MV Peak GR. 4mmHg E/A ratio 0.7 2D MVA cm2 DECEL Time 167ms PRESS 1/2 Time ms Aortic Valve Aortic Valve Aortic Stenosis V1 1.12m/s AO Mean GR. 8mmHg V2 1.83m/s AO Peak GR. 13mmHg LVOT Diameter 2.1 (1.8-2.4cm) Doppler BILLY 2.12cm2 Pulmonic Valve V2 1.01m/s Tricuspid Valve TR Velocity 2.64m/s RVSP 30mmHg Other Information Quality : Technically Limited Rhythm : Technically limited study due to patient position.body habitus. Conclusion 1-Normal left ventricle systolic function with estimated ejection fraction of 60%, mild LV hypertrophy, normal LV wall motion. LV diastolic function is normal 2-Mildly dilated right ventricle with normal systolic function and estimated RVSP of 25-30 mmHg 3-No significant valvular pathology
--- NOTE | 2025-05-13 23:57 | DVHINCON2 ---
Date of service: May 13, 2025 Referring Physician LIZABETH Davis Reason for Consultation Acute on chronic hypoxic respiratory failure, asthma exacerbation and CAP. History of Present Illness A 64-year-old woman with past medical hsitory of asthma, diabetes mellitus, and thyroid disease who presented to ED on 05/12/25 for evaluation of shortness of breath. Patient reported a three day history of worsening shortness of breath, not being relieved with her inhaler or nebulizer at home. Denied cough or fever. No chest pain. Patient was admitted for further care. Pulmonary consultation is requested for evaluation and management of acute on chronic hypoxic respiratory failure, asthma exacerbation and CAP. Review of Systems: 14-point review of systems negative unless otherwise noted above. Past Medical History Diabetes mellitus, thyroid, asthma Past Surgical History Hysterectomy, thyroidectomy, tonsillectomy, . Medications: Reviewed. Allergies: Methylprednisolone; honey, latex. Family History: No family history of premature CAD. No family history of lung disorders. Social History: Nonsmoker. Occasional alcohol use. No illicit drug use. Family History: Cancer G8 MOTHER (Non Hodgkins lymphoma) FH: thyroid disease G8 FATHER Allergies: Coded Allergies: Honey (Verified Allergy, Unknown, 08/03/19) Latex (Verified Allergy, Unknown, 05/12/25) Methylprednisolone (Verified Allergy, Unknown, HIVES, 05/12/25) Home Meds Active Scripts Montelukast Sodium (Singulair) 10 Mg Tab, 10 MG PO QPM, #30 TAB Prov:CHANDU ROGERS MD 03/21/20 Famotidine (PEPCID TABLET) 20 Mg Tb, 1 TAB PO DAILY, #20 TAB Prov:CHANDU ROGERS MD 03/21/20 Prednisone (Prednisone) 20 Mg Tab, 20 MG PO BID, #14 MG Prov:CHANDU ROGERS MD 03/21/20 Doxycycline (Monohydrate) (Doxycycline) 100 Mg Cap, 100 MG PO BID, #10 CAP Prov:CHANDU ROGERS MD 03/21/20 Ipratropium [place] (Ipratropium [place]) 0.02 % Delmy, 0.5 % HHN TID, #30 ML Prov:CHANDU ROGERS MD 03/21/20 Reported Medications Tezepelumab-Ekko (Tezspire) 210 Mg/1.91 Ml Inj, 210 MG SC, INJ 05/13/25 Lisinopril (Lisinopril) 20 Mg Tab, 10 MG PO EOD, TAB 05/13/25 Aspirin (Aspirin Low Dose) 81 Mg Chw, 1 TAB PO DAILY, #30 TAB 3 Refills 05/13/25 Insulin Aspart (Novolog) 100 Unit/Ml Inj, 100 UNIT IJ, INJ 05/13/25 Loratadine (Claritin) 10 Mg Tab, 1 TAB PO DAILY, #30 TAB 5 Refills 05/13/25 Potassium Chloride (POTASSIUM CHLORIDE CR) 10 Meq Tb, 40 MEQ PO DAILY, TAB 05/13/25 Simvastatin (Simvastatin) 20 Mg Tab, 20 MG PO DAILY, TAB 05/13/25 Hydrochlorothiazide (Hydrochlorothiazide) 25 Mg Tab, 1 TAB PO DAILY, #30 TAB 5 Refills 05/13/25 Multiple Vitamins W/ Minerals (Multivitamin Adults 50+) 1 Tab Tab, 1 TAB PO DAILY, TAB 03/19/20 Potassium Chloride (Potassium Chloride ER) 20 Meq Tab, 20 MEQ PO DAILY, TAB 03/19/20 Albuterol Sulfate (Albuterol Sulfate) 0.083 % Neb, 1 VIAL NEB Q6HP, #50 VIAL 03/19/20 Insulin Aspart (Insulin Aspart Flexpen) 100 Unit/Ml Inj, 0 SC TID, INJ NOVOLOG SLIDING SCALE. MAX 10 UNITS PER INJECTION 03/19/20 Albuterol Sulfate (VENTOLIN MDI) 90 Mcg Ih, 2 PUFF IN Q6HP, INH 03/19/20 Levothyroxine Sodium (Levothyroxine Sodium) 88 Mcg Tab, 88 MCG PO DAILY, TAB 03/19/20 Simvastatin (Simvastatin) 5 Mg Tab, 5 MG PO HS, TAB 03/19/20 Hctz (Hydrochlorothiazide) 25 Mg Tab, 25 MG PO DAILY, TAB 03/19/20 Insulin Detemir (Levemir) Inj, 16 UNITS SC BID, INJ 03/19/15 Current Medications Current Medications Medications (Trade) Dose Ordered Sig/Payton Route PRN Reason Start Time Stop Time Status Last Admin Levothyroxine Sodium (Synthroid Tablet) 88 mcg QAM@0600 PO 05/13/25 06:00 05/13/25 06:46 Furosemide (Lasix Tablet) 40 mg DAILY PO 05/13/25 10:00 05/13/25 09:26 Azithromycin 250 ml @ 125 mls/hr DAILY IV 05/13/25 10:00 05/13/25 09:55 Diagnostic Test (Pha) (Accu-Chek Comfort Curve T) 1 strip Q6HR 05/13/25 02:00 05/13/25 03:44 DC 05/13/25 01:59 Insulin Human Regular (InsuLIN R) Q6HR SC 05/13/25 02:00 05/13/25 03:44 DC 05/13/25 01:59 Dextrose 50 ml UD PRN IV Blood Sugar LESS THAN 60 05/13/25 01:45 05/13/25 09:29 DC Diagnostic Test (Pha) (Accu-Chek Comfort Curve T) 1 strip IQ4HR 05/13/25 04:00 05/13/25 18:01 Insulin Human Regular (InsuLIN R) IQ4HR SC 05/13/25 04:00 05/13/25 18:01 Dextrose 50 ml UD PRN IV Blood Sugar LESS THAN 60 05/13/25 03:45 Insulin Glargine (Lantus) 15 units BID@1000,2200 SC 05/13/25 10:00 05/13/25 11:18 DC 05/13/25 09:47 Ceftriaxone Sodium 50 ml @ 100 mls/hr DAILY@09 IV 05/14/25 09:00 Patient Own Medication 30 PC PO 05/13/25 13:00 05/13/25 14:12 DC Patient Own Medication 30 DAILY PO 05/14/25 10:00 Vital Signs Vital Signs Date Time Temp Pulse Resp B/P (MAP) Pulse Ox O2 Delivery O2 Flow Rate FiO2 05/13/25 21:00 97.7 100 18 150/67 (94) 98 97.7 05/13/25 19:55 Room Air 05/13/25 19:55 0 21 Physical Exam Gen.: Patient lying in bed in no apparent distress. Breathing on room air. Head: Normocephalic, atraumatic. Eyes: EOMI/PERRLA. Ears: Normal hearing. Normal anatomy. Neck/trachea: Trachea midline, supple. Nose: Normal external anatomy. Mouth: Moist mucous membranes. Chest: Decreased air entry bilaterally. No wheezing or rhonchi. Cardiovascular: Positive S1, positive S2. Regular rate and rhythm. Abdomen: Positive bowel sounds in all 4 quadrants. Soft, non-tender, non-disten ded. : Deferred. Rectal: Deferred. Skin: Warm, dry. Intact. Extremities: 2+ radial pulses bilaterally. No lower extremity edema. Neuro: Awake, alert, oriented x3. No gross motor or sensory deficits. Cranial nerves II through XII intact. Gait not assessed. Labs/Diagnostic Data Labs Test 05/13/25 16:59 05/13/25 06:17 05/12/25 17:48 Range/Units POC Glucose 358 H 70-106 mg/dl Sodium Level 137 136-145 mmol/L Potassium Level 3.1 L 3.5-5.1 mmol/L Chloride Level 98 98-107 mmol/L Carbon Dioxide Level 23 20-31 mmol/L Anion Gap 16 H 5-15 Blood Urea Nitrogen 14 9-23 mg/dL Creatinine 1.21 H 0.550-1.02 mg/dL Glomerular Filtration Rate Calc 50 >90 mL/min BUN/Creatinine Ratio 11.6 10.0-20.0 Serum Glucose 460 *H 74-106 mg/dL Hemoglobin A1c 8.3 H <5.7 % A1C Calcium Level 9.5 8.7-10.4 mg/dL White Blood Count 5.7 4.4-10.8 10^3/uL Red Blood Count 4.35 4.0-5.20 10^6/uL Hemoglobin 11.1 L 12.2-16.2 g/dL Hematocrit 34.4 L 36.0-46.0 % Mean Corpuscular Volume 79.0 L 80.0-100.0 fL Mean Corpuscular Hemoglobin 25.5 L 28.0-32.0 pg Mean Corpuscular Hemoglobin Concent 32.3 32.0-36.0 g/dL Red Cell Distribution Width 15.9 H 11.8-14.3 % Platelet Count 365 140-450 10^3/uL Mean Platelet Volume 7.4 6.9-10.8 fL Neutrophils (%) (Auto) 66.2 37.0-80.0 % Lymphocytes (%) (Auto) 24.0 10.0-50.0 % Monocytes (%) (Auto) 8.0 0.0-12.0 % Eosinophils (%) (Auto) 1.5 0.0-7.0 % Basophils (%) (Auto) 0.3 0.0-2.0 % Neutrophils # (Auto) 3.8 1.6-8.6 10 ^3/uL Lymphocytes # (Auto) 1.4 0.4-5.4 10 ^3/uL Monocytes # (Auto) 0.5 0-1.3 10 ^3/uL Eosinophils # (Auto) 0.1 0-0.8 10 ^3/uL Basophils # (Auto) 0 0-0.2 10 ^3/uL Nucleated Red Blood Cells 0.0 % D-Dimer, Quantitative 0.72 H 0.0-0.49 mg/L FEU B-Type Natriuretic Peptide 23.68 0-100 pg/mL Assessment Impression: Acute on chronic hypoxic respiratory failure Acute asthma exacerbation Acute community-acquired pneumonia Diabetes mellitus type 2 Morbid obesity Plan: On room air. Supplemental oxygen PRN Titrate to keep O2 sats above 92%. Continue bronchodilators. Continue antibiotics Steroids Obtain Tezspire from pulmonary office - [facility] 204. Incentive spirometry Accu-Cheks, ISS Monitor renal function. Monitor electrolytes. Supplement as necessary. Monitor ins and outs. Recommend diet and lifestyle modifications for weight reduction Obesity complicates all care DVT prophylaxis. Prognosis: Poor given patient's multiple co-morbidities. Rest of plan per hospitalist and other consultants. Thank you, LIZABETH Davis, for allowing me to participate in this patient's care. Further recommendations will depend on the patient's clinical course. Please do not hesitate to contact me if you have any questions or concerns. This medical document was created using an electronic medical record system with [facility] computerized dictation system. Although these documentations are being carefully reviewed, there may still be some phonetic and typographical changes. The errors are purely typographical, due to imperfection on the software program, and do not reflect any compromise in the patient's medical care. Plan discussed with: Patient, Other (RN Dianna/) Visit Coding Pulmonary Billing Provider: YOUNG QUIGLEY MD Date of Service if different f: May 13, 2025 Common Visit Codes: [id number] INP/OBS CARE (HIGH) YOUNG QUIGLEY MD May 13, 2025 23:57
[2025-05-14] VITALS (9 sets, daily range): BP systolic 120–154; BP diastolic 64–95; PULSE 63–88; RESP 18–20; TEMP 36.6; O2SAT 94–100
[2025-05-14 06:08] LABS: COVID19 ANTIGEN SOFIA FIA NEGATIVE (NEGATIVE)
[2025-05-14 07:07] LABS: Hematocrit 32.6 % (36.0-46.0); Hemoglobin 10.9 g/dL (12.2-16.2); Mean Corpuscular Hemoglobin 26.1 pg (28.0-32.0); Mean Corpuscular Volume 78.0 fL (80.0-100.0); Nucleated Red Blood Cells % 0.0 %
[2025-05-14 07:27] LABS: Alanine Aminotransferase 15 U/L (7-40); Albumin 4.4 g/dL (3.2-4.8); Alkaline Phosphatase 98 U/L (46-116); Anion Gap 12 (5-15); BUN/Creatinine Ratio 13.6 (10.0-20.0); Blood Urea Nitrogen 12 mg/dL (9-23); Calcium 9.5 mg/dL (8.7-10.4); Carbon Dioxide 28 mmol/L (20-31); Chloride 102 mmol/L (98-107); Glucose 85 mg/dL (74-106); Sodium 142 mmol/L (136-145); Total Protein 7.2 g/dL (5.7-8.2)
[2025-05-14 07:28] LABS: Bilirubin, Total 0.3 mg/dL (0.2-1.0)
[2025-05-14 07:31] LABS: Potassium 2.9 mmol/L (3.5-5.1)
[2025-05-14] MEDS ORDERED: DOXY100C79 PO (11:51)
--- NOTE | 2025-05-14 11:54 | DVHPN2 ---
Changes from previous H/P or p: No Changes Objective Vitals Vital Signs Date Time Temp Pulse Resp B/P (MAP) Pulse Ox O2 Delivery O2 Flow Rate FiO2 05/14/25 10:03 154/95 05/14/25 09:00 97.7 68 18 97 97.7 05/14/25 08:00 Room Air* 2 N/A Nasal Cannula* Intake/Output Intake and Output 05/14/25 07:00 Intake Total 5490 ml Balance 5490 ml Intake Oral 5240 ml IV Total 250 ml # Voids 9 Medications Current Medications Medications Dose Ordered Sig/Payton Route Start Time Stop Time Status Last Admin Dose Admin Albuterol 2.5 mg Q6HPRN PRN NEB 05/12/25 20:30 05/14/25 01:06 2.5 MG Ipratropium [place] 0.5 mg Q6HPRN PRN NEB 05/12/25 20:30 05/14/25 01:06 0.5 MG Levothyroxine Sodium 88 mcg QAM@0600 PO 05/13/25 06:00 05/14/25 07:52 88 MCG Montelukast Sodium 10 mg HS PO 05/12/25 22:00 05/13/25 23:14 10 MG Furosemide 40 mg DAILY PO 05/13/25 10:00 05/14/25 10:03 40 MG Azithromycin 250 ml @ 125 mls/hr DAILY IV 05/13/25 10:00 05/14/25 10:02 125 MLS/HR Ondansetron HCl 4 mg Q4HP PRN IV 05/12/25 20:30 Acetaminophen 650 mg Q6HP PRN PO 05/12/25 20:30 Diagnostic Test (Pha) 1 strip IQ4HR 05/13/25 04:00 05/14/25 08:27 1 STRIP Insulin Human Regular IQ4HR SC 05/13/25 04:00 05/14/25 00:03 12 UNITS Dextrose 50 ml UD PRN IV 05/13/25 03:45 Ceftriaxone Sodium 50 ml @ 100 mls/hr DAILY@09 IV 05/14/25 09:00 05/14/25 10:01 100 MLS/HR Patient Own Medication 30 DAILY PO 05/14/25 10:00 05/14/25 10:10 30 Laboratory Results Laboratory Tests 05/14/25 06:33 Chemistry Test 05/14/25 06:33 Albumin 4.4 g/dL (3.2-4.8) Calcium Level 9.5 mg/dL (8.7-10.4) Total Protein 7.2 g/dL (5.7-8.2) LFT Test 05/14/25 06:33 Alanine Aminotransferase (ALT) 15 U/L (7-40) Alkaline Phosphatase 98 U/L (46-116) Aspartate Amino Transferase (AST) 15 U/L (13-40) Total Bilirubin 0.3 mg/dL (0.2-1.0) Labs and/or images reviewed: Labs reviewed by me, Image(s) reviewed by me Assessment/Plan Assessment/Plan Acute on chronic respiratory failure oxygen by nasal cannula, pulmonary consult by Dr. 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 Insulin sliding scale A1c 8.3 patient takes NovoLog and Toujevo at home Hypothyroidism: Synthroid PCP DR Valdez Time spent 50 minutes Advanced care planning time 20 minutes Patient is full code Patient feels better and willing to go home KACIE Macedo at bedside Plan discussed with: Patient My Orders Orders - FIDEL TERRY MD Procedure Category Date Status Time Cardiac DIET 05/13/25 Transmitted Diet-2gna,Lofat,Lochol Lunch Patients Own PHA 05/14/25 In Process Medication 10:00 *Consult CONS 05/13/25 Transmitted 15:26 Date of Service: May 14, 2025 Billing Provider: FIDEL TERRY MD Common Visit Codes: [id number] INP/OBS CARE(HIGH) FIDEL TERRY MD May 14, 2025 11:54
--- NOTE | 2025-05-14 11:59 | DVHDS2 ---
Discharge Summary Date of Admission May 12, 2025 at 20:04 Date of Discharge: May 14, 2025 Admitting Diagnosis Shortness of breath Wounds: None Labs/Diagnostic Data: Laboratory Results Test 05/14/25 06:35 05/14/25 06:33 05/14/25 04:30 05/13/25 06:17 POC Glucose 92 mg/dl (70-106) White Blood Count 8.3 10^3/uL (4.4-10.8) Red Blood Count 4.18 10^6/uL (4.0-5.20) Hemoglobin 10.9 g/dL (12.2-16.2) Hematocrit 32.6 % (36.0-46.0) Mean Corpuscular Volume 78.0 fL (80.0-100.0) Mean Corpuscular Hemoglobin 26.1 pg (28.0-32.0) Mean Corpuscular Hemoglobin Concent 33.4 g/dL (32.0-36.0) Red Cell Distribution Width 15.8 % (11.8-14.3) Platelet Count 356 10^3/uL (140-450) Mean Platelet Volume 7.5 fL (6.9-10.8) Neutrophils (%) (Auto) 67.4 % (37.0-80.0) Lymphocytes (%) (Auto) 22.9 % (10.0-50.0) Monocytes (%) (Auto) 8.0 % (0.0-12.0) Eosinophils (%) (Auto) 0.4 % (0.0-7.0) Basophils (%) (Auto) 1.3 % (0.0-2.0) Neutrophils # (Auto) 5.6 10 ^3/uL (1.6-8.6) Lymphocytes # (Auto) 1.9 10 ^3/uL (0.4-5.4) Monocytes # (Auto) 0.7 10 ^3/uL (0-1.3) Eosinophils # (Auto) 0 10 ^3/uL (0-0.8) Basophils # (Auto) 0.1 10 ^3/uL (0-0.2) Nucleated Red Blood Cells 0.0 % Sodium Level 142 mmol/L (136-145) Potassium Level 2.9 mmol/L (3.5-5.1) Chloride Level 102 mmol/L (98-107) Carbon Dioxide Level 28 mmol/L (20-31) Anion Gap 12 (5-15) Blood Urea Nitrogen 12 mg/dL (9-23) Creatinine 0.88 mg/dL (0.550-1.02) Glomerular Filtration Rate Calc 74 mL/min (>90) BUN/Creatinine Ratio 13.6 (10.0-20.0) Serum Glucose 85 mg/dL (74-106) Calcium Level 9.5 mg/dL (8.7-10.4) Total Bilirubin 0.3 mg/dL (0.2-1.0) Aspartate Amino Transferase (AST) 15 U/L (13-40) Alanine Aminotransferase (ALT) 15 U/L (7-40) Alkaline Phosphatase 98 U/L (46-116) Total Protein 7.2 g/dL (5.7-8.2) Albumin 4.4 g/dL (3.2-4.8) Influenza Type A Antigen Negative (Negative) Influenza Type B Antigen Negative (Negative) SARS-CoV-2 Antigen (Rapid) Negative (NEGATIVE) Hemoglobin A1c 8.3 % A1C (<5.7) Test 05/12/25 17:48 D-Dimer, Quantitative 0.72 mg/L FEU (0.0-0.49) B-Type Natriuretic Peptide 23.68 pg/mL (0-100) Other Laboratory Tests 05/14/25 06:33 Brief Hx & Hospital Course: 64-year-old female with a history of juvenile diabetes take NovoLog and Toujeo came in complaining of shortness of breaths found to have community-acquired pneumonia treated with Rocephin azithromycin also has a history of asthma treated with albuterol Atrovent med neb treatment cardiomegaly with shortness of breaths at [facility] by Cardiology ejection fraction 60 percent no further cardiac workup. Shortness of breaths felt to be due to pneumonia seen by pulmonology Dr. Olguin at the time of discharge patient is on room air afebrile stable vital signs diabetes well-controlled discharged home on doxycycline for pneumonia she will follow up with the primary Dr At the time of discharge patient is afebrile on room air stable vital signs KACIE Macedo at bedside at the time of discussion of discharge plan with the patient Consults/Reason for consult Cardiology Pulmonology Dr Olguin Operations or Procedures None Condition at Discharge: Fair Final Diagnosis/Problems List Acute on chronic respiratory failure oxygen by nasal cannula, pulmonary consult by Dr. 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 Insulin sliding scale A1c 8.3 patient takes NovoLog and Toujevo at home Hypothyroidism: Synthroid Discharge Disposition: Home Discharge Instruct/Medications Diet: Consistent carbohydrate Activity: Light activity Follow Up/Referral: Resume all previous home medications Follow up with the primary Dr Medications: Doxycycline Sent to the pharmacy Scheduled Albuterol Sulfate (Ventolin Mdi), 2 PUFF IN Q6HP, (Reported) Albuterol Sulfate (Albuterol Sulfate), 1 VIAL NEB Q6HP, (Reported) Aspirin (Aspirin Low Dose), 1 TAB PO DAILY, (Reported) Doxycycline (Monohydrate) (Doxycycline), 100 MG PO BID Doxycycline (Monohydrate) (Doxycycline), 100 MG PO BID Famotidine (Pepcid Tablet), 1 TAB PO DAILY Hctz (Hydrochlorothiazide), 25 MG PO DAILY, (Reported) Hydrochlorothiazide (Hydrochlorothiazide), 1 TAB PO DAILY, (Reported) Insulin Aspart (Insulin Aspart Flexpen), 0 SC TID, (Reported) Insulin Detemir (Levemir), 16 UNITS SC BID, (Reported) Ipratropium [place] (Ipratropium [place]), 0.5 % HHN TID Levothyroxine Sodium (Levothyroxine Sodium), 88 MCG PO DAILY, (Reported) Lisinopril (Lisinopril), 10 MG PO EOD, (Reported) Loratadine (Claritin), 1 TAB PO DAILY, (Reported) Montelukast Sodium (Singulair), 10 MG PO QPM Multiple Vitamins W/ Minerals (Multivitamin Adults 50+), 1 TAB PO DAILY, (Reported) Potassium Chloride (Potassium Chloride ER), 20 MEQ PO DAILY, (Reported) Potassium Chloride (Potassium Chloride Cr), 40 MEQ PO DAILY, (Reported) Prednisone (Prednisone), 20 MG PO BID Simvastatin (Simvastatin), 5 MG PO HS, (Reported) Simvastatin (Simvastatin), 20 MG PO DAILY, (Reported) Miscellaneous Medications Insulin Aspart (Novolog), 100 UNIT IJ, (Reported) Tezepelumab-Ekko (Tezspire), 210 MG SC, (Reported) 39 (Time taken for discharge summary 39 minutes) Discharge Statement: "Patient was advised to return to the ER or call 911 if any headaches, dizziness, shortness of breath, chest pain, abdominal pain, bleeding, fevers, or worsening of medical condition. Patient was counseled about treatment plan, medications, possible side effects, patientverbalized understanding. All questions were answered to the best of my ability. This discharge took greater then 30 minutes in planning, reviewing documentation, counseling the patient, and discussing with other team members." ASSESSMENT ASSESSMENT Hospital Course Improved Assessment Acute on chronic respiratory failure oxygen by nasal cannula, pulmonary consult by Dr. 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
--- NOTE | 2025-05-14 23:17 | DVHPN2 ---
Subjective DOS: 05/14/2025 Patient seen and examined at bedside. Currently on supplemental oxygen Overnight events reviewed. Changes from previous H/P or p: No Changes Objective Vitals Vital Signs Date Time Temp Pulse Resp B/P (MAP) Pulse Ox O2 Delivery O2 Flow Rate FiO2 05/14/25 17:00 97.8 83 20 120/64 (82) 97 97.8 05/14/25 10:00 Nasal Cannula* 2 28 Intake/Output Intake and Output 05/14/25 07:00 Intake Total 5490 ml Balance 5490 ml Intake Oral 5240 ml IV Total 250 ml # Voids 9 Exam Gen.: Patient lying in bed in no apparent distress. On supplemental oxygen. Head: Normocephalic, atraumatic. Eyes: EOMI/PERRLA. Ears: Normal hearing. Normal anatomy. Neck/trachea: Trachea midline, supple. Nose: Normal external anatomy. Mouth: Moist mucous membranes. Chest: Decreased air entry bilaterally. No wheezing or rhonchi. Cardiovascular: Positive S1, positive S2. Regular rate and rhythm. Abdomen: Positive bowel sounds in all 4 quadrants. Soft, non-tender, non- distended. : Deferred. Rectal: Deferred. Skin: Warm, dry. Intact. Extremities: 2+ radial pulses bilaterally. No lower extremity edema. Neuro: Awake, alert, oriented x3. No gross motor or sensory deficits. Cranial nerves II through XII intact. Gait not assessed. Laboratory Results Laboratory Tests 05/14/25 06:33 Chemistry Test 05/14/25 06:33 Albumin 4.4 g/dL (3.2-4.8) Calcium Level 9.5 mg/dL (8.7-10.4) Total Protein 7.2 g/dL (5.7-8.2) LFT Test 05/14/25 06:33 Alanine Aminotransferase (ALT) 15 U/L (7-40) Alkaline Phosphatase 98 U/L (46-116) Aspartate Amino Transferase (AST) 15 U/L (13-40) Total Bilirubin 0.3 mg/dL (0.2-1.0) Assessment/Plan Assessment/Plan Impression: Acute on chronic hypoxic respiratory failure Acute asthma exacerbation Acute community-acquired pneumonia Diabetes mellitus type 2 Morbid obesity Events: Currently on supplemental oxygen, 3 LPM NC Taper O2 as tolerated Continue bronchodilators Continue Tezspire as outpatient. Continue antibiotics Patient is stable for discharge from the pulmonary standpoint. Labs and imaging reviewed. Rest of plan as noted below. Plan: Supplemental oxygen Titrate to keep O2 sats above 92%. Continue bronchodilators. Continue antibiotics Steroids Obtain Tezspire from pulmonary office - [facility] 204. Incentive spirometry Accu-Cheks, ISS Monitor renal function. Monitor electrolytes. Supplement as necessary. Monitor ins and outs. Recommend diet and lifestyle modifications for weight reduction Obesity complicates all care DVT prophylaxis. Prognosis: Poor given patient's multiple co-morbidities. Rest of plan per hospitalist and other consultants. Thank you, LIZABETH Davis, for allowing me to participate in this patient's care. Further recommendations will depend on the patient's clinical course. Please do not hesitate to contact me if you have any questions or concerns. This medical document was created using an electronic medical record system with [employer] dictation system. Although these documentations are being carefully reviewed, there may still be some phonetic and typographical changes. The errors are purely typographical, due to imperfection on the software program, and do not reflect any compromise in the patient's medical care. Plan discussed with: Patient, Other (RN Hellen) Visit Coding Pulmonary Billing Provider: YOUNG QUIGLEY MD Date of Service if different f: May 14, 2025 Common Visit Codes: [id number] INP/OBS CARE(HIGH) YOUNG QUIGLEY MD May 14, 2025 23:17
== END 2025-05-14 18:35 | disposition home or self-care (01) | DRG 177 ==
LOC: ER 16:37 → OVERFLOW 20:04 → WEST WING 20:05
PROVIDERS: ADMIT Nurse Practitioner; ATTEND Nurse Practitioner
DX: J15.69 Pneumonia due to other Gram-negative bacteria (principal); J96.21 Acute and chronic respiratory failure with hypoxia; J15.9 Unspecified bacterial pneumonia; J45.901 Unspecified asthma with (acute) exacerbation; E66.01 Morbid (severe) obesity due to excess calories; E10.9 Type 1 diabetes mellitus without complications; E89.0 Postprocedural hypothyroidism; E78.5 Hyperlipidemia, unspecified; Z90.710 Acquired absence of both cervix and uterus; Z98.891 History of uterine scar from previous surgery; Z91.040 Latex allergy status; Z80.7 Family history of other malignant neoplasms of lymphoid, hematopoietic and related tissues; Z79.4 Long term (current) use of insulin; Z79.82 Long term (current) use of aspirin; Z68.39 Body mass index [BMI] 39.0-39.9, adult
CPT/HCPCS: 36415; 71046; 80048; 80053; 82962; 83036; 83880; 85025; 85379; 87426; 87804; 93005; 93306; 94640; 96374; 96375; 99291; G0378; J1100; J1815